=== PATIENT | male | born 1950 | race Caucasian/White ===

== ENCOUNTER 2018-09-12 00:48 | Outpatient (CLI) | payer MEDICARE, BC, SELFPAY ==
--- NOTE | 2018-09-12 08:30 | DI.RAD_ITS ---
SYMPTOM/DIAGNOSIS: LEFT HIP MELINDA N M25.552 LEFT HIP: Joint space narrowing, articular sclerosis and mary-articular hypertrophic spurring are demonstrated. Findings consistent with severe left ;hip DJD. Note is also made of similar findings involving the right hip.
== END 2018-09-12 01:08 ==
PROVIDERS: PCP Family Medicine; Visit Provider Emergency Medicine
DX: M25.552 Pain in left hip (principal); M16.10 Unilateral primary osteoarthritis, unspecified hip
CPT/HCPCS: 73502

== ENCOUNTER → 2018-10-11 10:18 | Outpatient (BNVA) | payer MEDICARE, BC, SELFPAY | PROVIDERS: PCP Family Medicine; Referring Provider Family Medicine; Visit Provider Student in an Organized Health Care Education/Training Program | DX: M16.11 Unilateral primary osteoarthritis, right hip (principal); M16.12 Unilateral primary osteoarthritis, left hip; M25.551 Pain in right hip; M25.552 Pain in left hip | CPT/HCPCS: 99203 ==

== ENCOUNTER 2018-11-23 11:47 | Outpatient (CLI) | payer MEDICARE, BC, SELFPAY ==
--- NOTE | 2018-11-23 12:19 | DI.RAD_ITS ---
SYMPTOM/DIAGNOSIS: PHU SURGICAL PLANNING RIGHT HIP: A single frontal view was performed. There is marked narrowing of the superior joint space of the right hip. There is subchondral sclerosis and mary-articular spurring seen in the right hip. The bones appear intact and normally mineralized on this single AP image. IMPRESSION: Moderately severe degenerative changes of the right hip. LEFT HIP: A single AP view was performed. Comparison is made with 09/12/18. There is marked narrowing of the superior joint space of the left hip. There are prominent osteophytes seen at the acetabulum and the femoral head. Subchondral sclerosis is present. There is normal alignment of the left hip on this single AP view. The soft tissues are grossly unremarkable. IMPRESSION: Marked osteoarthritis of the left hip.
== END 2018-11-23 12:07 ==
PROVIDERS: PCP Family Medicine; Visit Provider Physician Assistant
DX: M16.0 Bilateral primary osteoarthritis of hip (principal); M25.752 Osteophyte, left hip
CPT/HCPCS: 73501

== ENCOUNTER 2018-11-23 13:06 | Outpatient (CLI) | payer MEDICARE, BC, SELFPAY ==
--- NOTE | 2018-11-23 11:46 | W.PREOPHP ---
Date of service: 11/23/18 Assessment and Plan (1) Bilateral primary osteoarthritis of hip: Current visit: No Status: Chronic Bilateral total hip replacements, left then right. Details of surgery were discussed with patient as well as risks and pertinent anatomy. All questions were answered. History of Present Illness Chief Complaint: B/L hip pain Narrative: Bryan is a 68-year-old male who comes in today for a preop history and physical for bilateral total hip replacements. He has been complaining of bilateral hip pain for many years, and does admit that over the last year his left has gotten slightly worse than the right. He says that both hips limit his activity, and it is in fact almost impossible for him to put on shoes and socks at this time because of his lack of mobility and hip pain. He feels the pain mostly in his groin but also in the posterior aspect of his hip as well as the lateral aspect. Again the left slightly worse than the right. He has been using anti-inflammatories, but this does not give him a satisfactory reduction in his pain or increase in his function. X-rays taken previously show severe arthritis of both hips including a loss of joint space on both hips, as well as osteophytes throughout. There also are signs of subchondral cysts. After long discussion with Dr. Rojas, Dr. Rojas does offer a bilateral total hip replacements done on the same day sequentially. He was instructed that an evaluation will be done after the first have to ensure that it is safe to proceed with a second hip, and he agrees with this plan and is anxious to proceed. Pertinent Surgical Information Patient denies history of hypertension, CVA, [place], angina, asthma, COPD, renal or liver disorders, hepatitis, bleeding disorders, diabetes, immune or thyroid disorders. No complications from anesthesia. Review of Systems Constitutional Denies fever(s) ENT Denies dizziness and Denies sore throat Cardiovascular Denies chest pain, Denies palpitations and Denies dyspnea Respiratory Denies cough and Denies dyspnea Gastrointestinal Denies abdominal pain, Denies melena, Denies hematochezia, Denies diarrhea, Denies nausea and Denies vomiting Genitourinary Denies hematuria and Denies dysuria Neurologic Denies dizziness Endocrine Denies palpitations [facility] Social History Smoking/Tobacco Use Status: Former Tobacco Use Drug use: Never Meds Home Medications Medication Instructions Recorded Confirmed Type pkrcctftomyk-blxa-weipr acid 1 ea PO DAILY 12/05/12 11/23/18 History [Centrum Complete Multivit Tab] ranitidine HCl 150 mg PO PRN 08/12/16 11/23/18 History Dry Eye Relief 1 drp OPHTHALMIC (EYE) PRN PRN 09/02/17 11/23/18 History Uc2 1 tab PO DAILY 11/23/18 11/23/18 History loratadine 10 mg PO DAILY 11/23/18 11/23/18 History Allergies Allergy/AdvReac Type Severity Reaction Status Date / Time ergocalciferol (vitamin D2) Allergy Mild Skin Rash Verified 11/23/18 13:26 Penicillins Allergy Unknown Childhood Verified 11/23/18 13:26 allergy Exam HENOH Head: normocephalic and atraumatic General nose exam: no nasal discharge Eyes Conjunctivae: conjunctivae normal Sclera: sclerae normal Resp Effort & Inspection: normal respiratory effort Auscultation: clear to auscultation bilaterally and no wheezes Cardio Rate: regular rate Rhythm: regular rhythm Heart Sounds: S1 normal, S2 normal and no murmurs GI Palpation: soft, no hepatosplenomegaly and nontender Auscultation: normal bowel sounds Results Labs : 11/23/18 14:10 11/23/18 14:10
[2018-11-23 14:21] LABS: HCT 47.9 % (40.0-50.0); HGB 16.3 g/dL (13.5-17.5); Mean Corpuscular Volume 85.1 fL (80-95); Mean Platelet Volume 9.8 fL (8.0-11.0); Platelet Count 209 x1000/uL (130-400); RBC 5.63 m/cumm (4.50-6.00); RBC Distribution Width 12.8 % (11.8-14.1); White Blood Cell Count 6.41 k/cumm (4.4-10.8)
[2018-11-23 15:33] LABS: Anion Gap 12.7 mmol/L (3-11); BUN 17 mg/dL (7-18); CO2 25.3 mmol/L (21.0-32.0); CREATININE 0.85 mg/dL (0.70-1.30); Calcium 8.7 mg/dL (8.5-10.1); Chloride 105 mmol/L (98-107); Glucose 89 mg/dL (70-100); Potassium 4.2 mmol/L (3.5-5.1); Sodium 143 mmol/L (136-145)
== END 2018-11-23 13:26 ==
PROVIDERS: PCP Family Medicine; Visit Provider Student in an Organized Health Care Education/Training Program
DX: M16.0 Bilateral primary osteoarthritis of hip (principal); M25.551 Pain in right hip; M25.552 Pain in left hip; Z01.812 Encounter for preprocedural laboratory examination; Z01.818 Encounter for other preprocedural examination
CPT/HCPCS: 36415; 80048; 85027; 86850; 86900; 86901; NC; 73501; 93005; 93010

== ENCOUNTER 2018-12-06 05:59 | Inpatient (IN) | payer MEDICARE, BC, SELFPAY ==
[2018-12-06] VITALS (17 sets, daily range): BP systolic 84–137; BP diastolic 48–83; PULSE 52–76; RESP 15–22; TEMP 35–36.8; O2SAT 94–100
--- NOTE | 2018-12-06 07:04 | DI.RAD_ITS ---
SYMPTOMS/DIAGNOSIS: OSTEOARTHRITIS LT AND RT HIP C-ARM FLUOROSCOPY OF THE RIGHT HIP: Fluoroscopy Time: 50 sec 5.41 mGY Fluoroscopy was provided in the OR for Dr. Rojas. Hardcopy image shows placement of a right hip prosthesis. The components appear well aligned. C-ARM FLUOROSCOPY OF THE LEFT HIP: Fluoroscopy was provided in the OR for Dr. Rojas. Hardcopy image shows placement of a left hip prosthesis. The components appear well aligned.
[2018-12-06] MEDS: oxyCODONE-CR 10 MG TABCR PO (07:07)
[2018-12-06] MEDS: Acetaminophen 500 MG TAB 1000 MG PO ×2 (07:07→21:04)
[2018-12-06] MEDS: Celecoxib 200 MG CAP 400 MG PO (07:07)
[2018-12-06] MEDS: Lactated Ringers 1,000 ML 80 ML IV ×4 (07:08→14:06)
[2018-12-06] MEDS: ceFAZolin 2 GM/50 ML BAG IVPB (07:34)
[2018-12-06] MEDS: Ketorolac 30 MG/ML VIAL (11:25)
[2018-12-06] MEDS: Normal Saline 20 ML VIAL (11:25)
[2018-12-06] MEDS: Bupivacaine 0.25% Pres-Free 30 ML VIAL (11:25)
--- NOTE | 2018-12-06 12:27 | W.PM.OP ---
Date of service: 12/06/18 Time of Service: 12:27 Operative Note DATE OF PROCEDURE: 12/06/18 PRE-OP DIAGNOSIS: Bilateral Hip Osteoarthritis POST-OP DIAGNOSIS: same PROCEDURE: Bilateral Anterior Total Hip Arthroplasty SURGEON: Lane Rojas NURSE PRACTITIONER PER DIEM: John Velasco ANESTHESIA: spinal ESTIMATED BLOOD LOSS: 1,200 PATHOLOGY: none sent COMPLICATIONS: None Patient was transported to: PACU Patient's condition: stable Implants: LEFT: 1. Depuy [place] Acetabular Component, 56mm 2. Depuy Acetabular Liner, [id number], +4 lateralized 3. Depuy Corail Coxa Vara Femoral Stem, Size 14 4. Depuy Altrx Ceramic Femoral Head, Size 36+5mm RIGHT: 1. Depuy [place] Acetabular Component, 58mm 2. Depuy Acetabular Liner, [id number], +4 lateralized 3. Depuy Corail Coxa Vara Femoral Stem, Size 14 4. Depuy Altrx Ceramic Femoral Head, Size 36+5mm Indications: I have seen Bryan in clinic for symptoms of bilateral hip arthritis, confirmed with radiographic findings. Bryan has exhausted nonoperative methods and was having significant limitations in daily function and desired better function and less pain. I discussed the technical details of a hip replacement. I explained the risks of the procedure to include, but not limited to, bleeding, infection, pain, stiffness, fracture, damage to nerves and vessels, damage to muscles and tendons, loosening, instability, leg length inequality, need for repeat procedure, blood clot and cardiopulmonary demise. Despite these risks, Bryan elected to proceed. Findings: There was significant signs of arthritis throughout the hip. Large lateral neck osteophytes and lateral acetabular osteophytes were encountered and removed. There was also a large floor osteophyte. Procedure Description: Bryan was greeted in the preoperative holding area where the correct side was identified and marked. The consent was reviewed with the patient and signed. The history and physical was updated. All questions were answered. Bryan was taken back to the operating room. A spinal anesthestic was then administered. The patient was placed into the supine position on the operating room table. The patient was then positioned onto the ARCH table. Both feet were wrapped with Webrill cotton wrap along with Coban. The feet were placed in specialized boots for the ARCH table, well seated within the boot and secured. SCDs were applied. The patient was then slid down onto a peroneal post. LEFT HIP The LEFT hip was started first. The right leg was secured in a leg tinajero attached to the table. The operative side was placed into the ARCH table attachment and bed height and positioning was secured. A preoperative AP pelvis was obtained to serve as a reference for determining leg lengths. Prophylactic antibiotics in the form of Cefazolin were administered. 1g of Tranxemic Acid was given intravenously within 30 minutes of incision. The left leg was then prepped with Chloraprep and draped in a standard fashion with a large shower-curtain type drape with Iodine impregnated skin protection. A timeout to confirm correct identity, side and site, procedure, allergies, anesthesia, and medical concerns was performed. An obliquely oriented incision was made starting lateral to the ASIS and running distal over the Tensor Fascia Xochitl (TFL) muscle belly toward the fibular head, approximately 10cm. The skin and soft tissue was dissected sharply, through Miriam?s fascia, and to the fascia of the TFL. With the fascia and superior border of the IT band identified, the fascia was incised with a new knife just above any perforators from the IT band. The TFL muscle belly was bluntly dissected away from the fascia and moved laterally. The fat between TFL and rectus was identified to ensure the dissection was not within the TFL. Blunt dissection created space between abductors and the capsule and retractor was placed over the lateral femoral neck. The fibers of the rectus femoris tendon were identified and these were freed from the anterior capsule. A second cobra retractor was placed around the medial femoral neck. The TFL was further retracted laterally to show the deep fascia. Careful dissection through this layer identified three main crossing vessels of the lateral femoral circumflex. These were cauterized in multiple locations and then cut without any noticeable bleeding. The TFL was further released bluntly from the deep fascia to expose anterior hip capsule and fat The Momo orthopaedic retractor was then placed beneath the TFL and against sartorius and medial soft tissues to protect and retract the soft tissues. A T-capsulotomy was then performed starting at the superior lateral acetabulum and moving distally to the intertrochanteric ridge. These capsular flaps were tagged with a No. 1 Ethibond and elevated from within. The capsular flaps were released to the shoulder of the lateral neck and to the lesser trochanter to give excellent visualization of the proximal femur. A neck osteotomy was performed using an oscillating saw based on preoperative templates. This cut started in the shoulder and of the lateral neck and exited medially. The saw was at all times directed medially to avoid injury to the greater trochanter. 6cm of traction was applied to the leg and the osteotomy opened. The femoral head was removed with a corkscrew, making sure to protect the TFL on its exit. This was measured on the back table to determing the starting reamer size. Portions of the rectus obscuring visualization were minimally elevated off the superior acetabulum. An anterior retractor was placed over the anterior wall between capsule and labrum. A posterior retractor was placed similarly. This provided excellent visualization. The contents of the cotyloid fossa were removed with electrocautery and the labrum was removed with a knife. There was a notable floor osteophyte. Acetabular reaming began with a 53mm reamer. This first reaming was directed anterior to posterior and medial to get down to the true floor. This was inspected and reamed until the true floor was reached. I then reamed sequentially up to a 55mm reamer where good fit was obtained. The larger reamers were oriented based on anatomical reference of the anterior and lateral jennings to ensure proper abduction and anteversion. Positioning and size was confirmed with the fluoroscopy. A 56mm Depuy [place] acetabular component was selected. The acetabulum was reamed around the periphery with the selected acetabular size to prevent a rim fit. The deep tissues were irrigated. The acetabular component was then impacted in a position of about 40-45 degrees of abduction and 15-20 degrees of anteversion, using the patient?s anatomy as the ultimate landmark. Fluoroscopy was used to confirm this. There was excellent senior technical specialist of the acetabular component and the inserting handle was removed. There was a large inferior osteophyte which may have impinged against the stem, so a curved osteotome was used to remove this in whole. The acetabular liner, Depuy [id number] +4 lateralized polyethylene liner, was inserted and lined up with the tines of the acetabular component. There was no soft tissue interposition. The liner was then impacted into position and confirmed to be well-seated. A portion of one half of the mary-articular cocktail was then injected around the acetabulum into the capsule and periosteum. Traction was released from the femur. The leg was rotated to 120 degrees. Any remaining medial capsule was released until the lesser trochanter was easily palpable. A two-pronged retractor was placed medially and held by the bedside Gripper device. The lateral capsule was further released into the shoulder to allow access to the greater trochanter. A Robertson retractor was placed over the greater trochanter which allowed the trochanter to flip in front of the capsule for excellent exposure. The leg was brought down into maximal extension and 20 degrees of adduction while ensuring there was no impingement on the acetabulum. Any remnant capsule within the trochanter was released. Piriformis and obturator externis were identified and protected. There was excellent access to the proximal femur. The lateral neck remnant was removed with a rongeur. A blunt canal probe was used to identify the canal and trajectory for later broaching. A box osteotome initiated the broach course. A small curved rasp and a curved curette were used to work laterally. Broaching then began with a size 8 Corail broach. This was inserted manually around the trochanter and into the canal before mallet blows. The broach was seated to a few millimeters below the cut level based on the neck cut and the preoperative template. Given the narrowing of the end nerve diameter of the proximal femoral shaft seen on preoperative x-rays I knew that this would limit appropriate broaching and seeding of stems. Therefore, I used a flexible reamer system to ream up to a size 14.5 mm diameter to allow insertion of the templated 14 broach. Sequential broaching was continued with the DealPerk mechanical broaching system until a tight fit was obtained with good rotational control of the femur. A trial Coxa Vara neck was inserted along with a +5 trial head. The leg was brought out of extension and adduction and then reduced with traction and internal rotation. The leg was stable anteriorly in a position of 30 degrees of extension and 90 degrees of external rotation. Fluoroscopy was used to ensure there was no fracture and the stem was seated well. Leg lengths were checked with an AP pelvis and pelvic reference points. Once content with the desired offset and leg lengths, the leg was brought back into extension, external rotation and adduction. The periosteum and surrounding tissue was injected with remaining 1/2 portion of the mary-articular cocktail. The proximal femur was irrigated as well as the deep tissues. The Depuy Corail Coxa Vara stem, size 14, was then manually inserted into the proximal femur making sure to control rotation. It was then malleted into position with light blows, giving breaks to allow bone expansion and decrease risk of fracture. The implant did sit 1-2mm proud, despite using a straight handled inserting arm. The selected Depuy Altrx Ceramic Head, size 36+5mm, was then placed onto the clean and dry trunnion and secured with impaction onto the tapered fit. The leg was brought back out of extension and adduction and reduced with traction and internal rotation. Stability was confirmed with no shuck at 90 degrees of external rotation and 30 degrees of extension. No impingement through range of motion arc. Final x-ray images were obtained with fluoroscopy to confirm adequate positioning and no intraoperative fracture. The deep tissues were thoroughly irrigated with a pulse lavage. The capsule was then reapproximated with the previously placed Ethibond sutures. The TFL fascia was finally closed with a No. 2 Stratafix, barbed suture. Deep tissues were then reapproximated with 0 Vicryl and a running 2-0 Vicryl. The skin was closed with a running 4-0 Monocryl in a subcuticular fashion. This was reinforced with skin glue. A Mepilex silver dressing was applied. All instruments were preserved in the back table and kept in a sterile condition. Disposables including Bovie cautery, pulse lavage, and suction were discarded. The drapes were fully removed.. RIGHT HIP The legs were removed from the traction boots and Arch table. The boots were switched and the left leg was secured in a leg tinajero attached to the table. The operative side was placed into the ARCH table attachment and bed height and positioning was secured. A preoperative AP pelvis was obtained to serve as a reference for determining leg lengths. 1g of Tranxemic Acid was given intravenously within 30 minutes of incision of this side. The right leg was then prepped with Chloraprep and draped in a standard fashion with a large shower-curtain type drape with Iodine impregnated skin protection. A second timeout was performed to ensure safety in proceeding to the right side. An obliquely oriented incision was made starting lateral to the ASIS and running distal over the Tensor Fascia Xochitl (TFL) muscle belly toward the fibular head, approximately 10cm. The skin and soft tissue was dissected sharply, through Miriam?s fascia, and to the fascia of the TFL. With the fascia and superior border of the IT band identified, the fascia was incised with a new knife just above any perforators from the IT band. The TFL muscle belly was bluntly dissected away from the fascia and moved laterally. The fat between TFL and rectus was identified to ensure the dissection was not within the TFL. Blunt dissection created space between abductors and the capsule and retractor was placed over the lateral femoral neck. The fibers of the rectus femoris tendon were identified and these were freed from the anterior capsule. A second cobra retractor was placed around the medial femoral neck. The TFL was further retracted laterally to show the deep fascia. Careful dissection through this layer identified three main crossing vessels of the lateral femoral circumflex. These were cauterized in multiple locations and then cut without any noticeable bleeding. The TFL was further released bluntly from the deep fascia to expose anterior hip capsule and fat The Momo orthopaedic retractor was then placed beneath the TFL and against sartorius and medial soft tissues to protect and retract the soft tissues. A T-capsulotomy was then performed starting at the superior lateral acetabulum and moving distally to the intertrochanteric ridge. These capsular flaps were tagged with a No. 1 Ethibond and elevated from within. The capsular flaps were released to the shoulder of the lateral neck and to the lesser trochanter to give excellent visualization of the proximal femur. A neck osteotomy was performed using an oscillating saw based on preoperative templates. This cut started in the shoulder and of the lateral neck and exited medially. The saw was at all times directed medially to avoid injury to the greater trochanter. 6cm of traction was applied to the leg and the osteotomy opened. The femoral head was removed with a corkscrew, making sure to protect the TFL on its exit. This was measured on the back table to determing the starting reamer size. Portions of the rectus obscuring visualization were minimally elevated off the superior acetabulum. An anterior retractor was placed over the anterior wall between capsule and labrum. A posterior retractor was placed similarly. This provided excellent visualization. The contents of the cotyloid fossa were removed with electrocautery and the labrum was removed with a knife. There was a notable floor osteophyte. Acetabular reaming began with a 53mm reamer. This first reaming was directed anterior to posterior and medial to get down to the true floor. This was inspected and reamed until the true floor was reached. I then reamed sequentially up to a 57mm reamer where good fit was obtained. The larger reamers were oriented based on anatomical reference of the anterior and lateral jennings to ensure proper abduction and anteversion. Positioning and size was confirmed with the fluoroscopy. A 56mm Depuy [place] acetabular component was selected. The acetabulum was reamed around the periphery with the selected acetabular size to prevent a rim fit. The deep tissues were irrigated. The acetabular component was then impacted in a position of about 40-45 degrees of abduction and 15-20 degrees of anteversion, using the patient?s anatomy as the ultimate landmark. Fluoroscopy was used to confirm this. There was excellent senior technical specialist of the acetabular component and the inserting handle was removed. The acetabular liner, Depuy [id number] +4 lateralized polyethylene liner, was inserted and lined up with the tines of the acetabular component. There was no soft tissue interposition. The liner was then impacted into position and confirmed to be well-seated. A portion of one half of the mary-articular cocktail was then injected around the acetabulum into the capsule and periosteum. This cocktail consisted of 50cc of 0.25% Bupivicaine and 20cc of Exparel, expanded to a total of 120cc. Traction was released from the femur. The leg was rotated to 120 degrees. Any remaining medial capsule was released until the lesser trochanter was easily palpable. A two-pronged retractor was placed medially and held by the bedside Gripper device. The lateral capsule was further released into the shoulder to allow access to the greater trochanter. A Robertson retractor was placed over the greater trochanter which allowed the trochanter to flip in front of the capsule for excellent exposure. The leg was brought down into maximal extension and 20 degrees of adduction while ensuring there was no impingement on the acetabulum. Any remnant capsule within the trochanter was released. Piriformis and obturator externis were identified and protected. There was excellent access to the proximal femur. The lateral neck remnant was removed with a rongeur. A blunt canal probe was used to identify the canal and trajectory for later broaching. A box osteotome initiated the broach course. A small curved rasp and a curved curette were used to work laterally. Broaching then began with a size 8 Corail broach. This was inserted manually around the trochanter and into the canal before mallet blows. The broach was seated to a few millimeters below the cut level based on the neck cut and the preoperative template. Given the narrowing of the end nerve diameter of the proximal femoral shaft seen on preoperative x-rays I knew that this would limit appropriate broaching and seeding of stems. Therefore, I used a flexible reamer system to ream up to a size 14.5 mm diameter to allow insertion of the templated 14 broach. Sequential broaching was continued with the [employer]Perk mechanical broaching system until a tight fit was obtained with good rotational control of the femur. A trial Coxa Vara neck was inserted along with a +5 trial head. The leg was brought out of extension and adduction and then reduced with traction and internal rotation. The leg was stable anteriorly in a position of 30 degrees of extension and 90 degrees of external rotation. Fluoroscopy was used to ensure there was no fracture and the stem was seated well. Leg lengths were checked with an AP pelvis and pelvic reference points. Once content with the desired offset and leg lengths, the leg was brought back into extension, external rotation and adduction. The periosteum and surrounding tissue was injected with remaining portion of the mary-articular cocktail. The proximal femur was irrigated as well as the deep tissues. The Depuy Corail Coxa Vara stem, size 14, was then manually inserted into the proximal femur making sure to control rotation. It was then malleted into position with light blows, giving breaks to allow bone expansion and decrease risk of fracture. The implant did sit 1-2mm proud, despite using a straigh handled inserting arm. The selected Depuy Altrx Ceramic Head, size 36+5mm, was then placed onto the clean and dry trunnion and secured with impaction onto the tapered fit. The leg was brought back out of extension and adduction and reduced with traction and internal rotation. Stability was confirmed with no shuck at 90 degrees of external rotation and 30 degrees of extension. No impingement through range of motion arc. Final x-ray images were obtained with fluoroscopy to confirm adequate positioning and no intraoperative fracture. The deep tissues were thoroughly irrigated with a pulse lavage. The capsule was then reapproximated with the previously placed Ethibond sutures. The TFL fascia was finally closed with a No. 2 Stratafix, barbed suture. Deep tissues were then reapproximated with 0 Vicryl and a running 2-0 Vicryl. The skin was closed with a running 4-0 Monocryl in a subcuticular fashion. This was reinforced with skin glue. A Mepilex silver dressing was applied. At the end of the case, all counts were correct. Bryan was transferred to the hospital bed without difficulty and suffering [no apparent complication]. Bryan has a good prognosis. Physical therapy will start today and without restrictions, weight-bearing as tolerated. Rivaroxaban 10 mg daily will be used for DVT prophylaxis.
--- NOTE | 2018-12-06 12:31 | DI.RAD_ITS ---
SYMPTOMS/DIAGNOSIS: S/P BILATERAL TOTAL HIP ARTHROPLASTY PELVIS: The exam was performed portably. The patient is status post placement of bilateral hip prostheses. The prostheses appear well aligned.
--- NOTE | 2018-12-06 15:29 | NUR.NOTE ---
Nursing Note: Pt brought up in med-surg bed to room 206. see worklist for VS, Pt temp 35.5 tympanic, warm blankets applied. HR reg, LS anterior clear. issues with boland, minimal output, see worklist. Pt has palpable pedal pulses, intact sensation and movement. denies pain. LR running. Will con't to monitor.
[2018-12-06] MEDS: HYDROmorphone 2 MG/ML VIAL 0.5 MG IVP (16:27)
[2018-12-06] MEDS: Ondansetron 4 MG/2 ML VIAL IVP (16:28)
[2018-12-06] MEDS: Normal Saline Flush 10 ML SYR IV (16:28)
--- NOTE | 2018-12-06 16:30 | PTTR_ITS ---
Date of service: 12/07/18 Time of Service: 09:18 PT Notes Inpatient Physical Therapy Treatment Note [facility] Date: 12/07/18 PRECAUTIONS: Fall. Standard. WBAT. SUBJECTIVE: Bryan was awake and reported he was feeling well. He reported three bouts of vomiting through the previous night, but said he was hungry this morning. He ate breakfast and said he was ?ready to get moving?. OBJECTIVE: PAIN: 04/13 BED MOBILITY/TRANSFERS Rolling L/R: S Supine-sit: S Sit-stand: SBA Stand-sit: SBA GAIT: Bryan ambulated with a FWW with CGA and wheelchair follow for 200? with a reciprocal gait pattern bearing weight on both extremities as tolerated. Deviation: Bryan exhibited decreased step length, normal natalia, and decreased knee flexion during swing phase. THEREX: Bryan performed [address] before attempting the stairs STAIRS: Bryan used bilateral rails and successfully ascended and descended three 4-inch steps and two 6-inch steps ASSESSMENT: Bryan is a 68 year old male s/p bilateral PHU POD 1. He experienced orthostatic hypotension yesterday but his vitals seem more stable today. His urine output is still continuing to be monitored and he is exhibiting hematuria. Functionally, Bryan is moving quite well. He is a motivated individual who has a to support and assist him at home. PLAN: Continue with PT twice daily until medically stable to be discharged. He is recommended to be discharged to his home under the care of his , and with a recommendation to receive home health services twice per week for two weeks. After home health is ceased, he should continue PT services in an outpatient clinic. TREATMENT CODE/TIME: 78565 x 40 minutes, 17536 x 10 minutes beginning at 9:18 AM. [facility] With the supervision of: Rupinder Wilson PT, DPT, CLT [facility]
--- NOTE | 2018-12-06 17:00 | IN_ITS ---
Date of service: 12/06/18 Time of Service: 15:34 PT Notes Inpatient Physical Therapy Evaluation Date: 12/06/2018 Referring Doctor: Lane Rojas MD PT Orders: PT CONSULT: Status post bilateral anterior PHU Precautions: Fall. Standard. WBAT on BLE. Patient Profile/Admitting Diagnosis: 68-year-old male with bilateral primary osteoarthritis of hips S/P bilateral anterior total hip arthroplasty on postoperative day 0. PMHX: GERD Hemorrhoids Hyperlipidemia BPH Social History/Home Situation: Patient lives with Gisselle in a private home with three steps to enter and a flight of steps to the second floor, railing on the r going up, where their bedroom is. They both state though that they will be ableto come up with a makeshift bed for when he goes home on the main floor. Equipment Owned/DME: FWW, shower chair, SC Subjective: Patient is agreeable to a PT consult. Patient states that he has not had any pain pills since coming up from the PACU today but is hopeful about being able to do as much as he can. Bryan reports lightheadedness upon sitting up from supine and partially subsided in the sitting position at EOB. However, symptom significantly increased after about 8 minutes of sitting at edge of bed with blood pressure plummeting to 89/61 mmHg from 100/79 mmHg. Nurse notified of said changes. Patient dednied headache and chest pain throughout session. Objective: General Observation: Patient seen resting in bed with HOB elevated about 30 degrees. Gisselle present throughout PT evaluation. Anti-thromboembolic pump present in R UE. Fajardo catheter in place. Cold pack to bilateral hips. Mepilex Ag over both incisions. Mental Status: Alert and oriented x4 as to person, place, time, and purpose Pain: 1/10 at rest, 3/10 with movement. VItal SIgns: ROM: Right Upper Extremity: Shoulder Flexion WFL. Shoulder abduction WFL. Elbow flexion WFL. Wrist flexion WFL. Functional opening and closing of hand WFL. Left Upper Extremity: Shoulder Flexion WFL. Shoulder abduction WFL. Elbow flexion WFL. Wrist flexion WFL. Functional opening and closing of hand WFL. Right Lower Extremity: Hip flexion allows up to about 30 degrees in supine with discomfort reported at end of range . Hip abduction up to 10 degrees. Knee flexion allows up to. Ankle dorsiflexion WFL. Ankle plantarflexion WFL. Left Lower Extremity: Hip flexion allows up to about 30 degrees in supine. Hip abduction up to 10 degrees. Knee flexion WFL. Ankle dorsiflexion WFL. Ankle pl antarflexion WFL. Strength: Right Upper Extremity: Shoulder flexors 5/5. Shoulder abductors 5/5. Elbow flexors 5/5. Elbow extensors 5/5. Retail Sales Advisor strong. Left Upper Extremity: Shoulder flexors 5/5. Shoulder abductors 5/5. Elbow flexors 5/5. Elbow extensors 5/5. Retail Sales Advisor strong. Right Lower Extremity: Hip flexors 3-/5. Hip abductors 3-/5. Knee flexors 3-/5. Knee extensors 4/5. Ankle dorsiflexors 5/5. Ankle plantarflexors 5/5. Left Lower Extremity:Hip flexors 3-/5. Hip abductors 3-/5. Knee flexors 3-5. Knee extensors 4/5. Ankle dorsiflexors 5/5. Ankle plantarflexors 5/5. Bed Mobility/Transfers: Rolling minimal assist Supine to sit minimal assist Sit to supine minimal assist Sit to stand Unable to test due to blood pressure fluctuation and increased c/o of lightheadedness and weakness Stand to sit Unable to test due to blood pressure fluctuation and increased c/o of lightheadedness and weakness Bed to chair Unable to test due to blood pressure fluctuation and increased c/o of lightheadedness and weakness Chair to bed Unable to test due to blood pressure fluctuation and increased c/o of lightheadedness and weakness Gait: Unable to test due to blood pressure fluctuation and increased c/o of lightheadedness and weakness Balance: Static Sitting: Good Dynamic Sitting: Fair Static Standing: Unable to test due to blood pressure fluctuation and increased c/o of lightheadedness and weakness Dynamic Standing: Unable to test due to blood pressure fluctuation and increased c/o of lightheadedness and weakness Special Tests: Mobility Limitations Standardized Measure [facility] AM-PAC 6 clicks Basic Mobility Inpatient Short Form: Raw Score: 12 CMS Score: 69% deficit Informed Consent/Education: Patient instructed in purpose of PT consult and plan of care. Patient and are both agreeable to continuing with mobility assessment tomorrow morning when his blood pressure is much more stable. Assessment: 68-year-old male with bilateral hip osteoarthritis and status post bilateral total hip arthroplasties on postoperative day 0. Patient presents today with postoperative blood pressure fluctuations ranging from 89/69 mmHg to 100/79 mmHg and HR of 47 to 68 bpm associated with increased lightheadedness during initial mobility assessment that only allowed sitting at edge of bed. Patient presents with clinical signs and symptoms consistent with current/admitting diagnoses that have resulted to mobility limitations, gait instability, generalized weakness, and impairment of motor control as demonstrated by the following impairment level findings: 1. Decreased strength to B LE major muscle groups 2. Impaired sitting/standing balance 3. Impaired activity tolerance 4. Limitation of joint range of motion in the hips Impairments are contributing to the following functional limitations: 1. Dependent bed mobility skills 2. Increased dependence with transfers 3. Inability to safely ambulate without assistive device and physical assi stance 4. Increase completion time for mobility ADL performance 5. Increased fall risk 6. Inability to negotiate steps alone safely Patient is assessed as a [id number] high complexity based on the following: History: Cognitively intact 68-year-old male with premorbid independent level with now with bilateral osteoarthritis of hips status post bilateral total hip arthroplasty postoperative day 0 Examination: Demonstrable impairment in strength, balance, and range of motion with underlying impairments and functional limitations as documented above Presentation:Evolving Decision Makin high complexity Goals: Goals X1 week 1. Supine-Sit independent 2. Sit-Supine independent 3. Sit-Stand independent 4. Stand-Sit independent 5. Bed-Chair independent 6. Chair-Bed independent 7. Independent gait on level surface with use of least restrictive device for at least 300 feet without report of pain nor dyspnea 8. Independent stair negotiation while holding onto bilateral rails for at least 10 steps without report of pain nor dyspnea 9. Independent with home exercise program 10. Good static and dynamic standing balance/tolerance Plan of Care/Treatment Plan: 1-2x/day, 7 days/week x 1 week. Plan of care has been reviewed with the ARCHITECT MANAGER providing the service under Physical Therapy direction. Initiate Physical Therapy intervention for strengthening, bed mobility, transfers, gait, stairs, balance training, use of assistive device. DISCHARGE RECOMMENDATIONS: No equipment needs at this time Patient will benefit from home health PT services in order to progress mobility level using least restrictive assistive ambulatory device, assess home safety, identify additional equipment needs, and establish a functional maintenance program that will increase ability of patient to remain at home. TREATMENT CODE/TIME: 81465 x 40 minutes, 9753 0 x 10 minutes, beginning at 15:34 PM. Thank you very much for this referral. Rupinder Wilson PT, DPT, CLT [facility]
--- NOTE | 2018-12-06 17:03 | NUR.NOTE ---
Addendum entered by Leslie Smith 12/06/18 17:14: while sitting at the bedside, he became nauseous and light headed. Denies any chest pain or pressure, but state he is feeling nauseated at the moment. Anti-emetic given to help relieve symptoms. Patient made comfortable in bed. Charge nurse informed. Original Note: Patient got up with PT, while sittt
[2018-12-06] MEDS: Lactated Ringers 1,000 ML 1000 ML IV (17:40)
[2018-12-06 17:46] LABS: HCT 34.1 % (40.0-50.0); HGB 11.6 g/dL (13.5-17.5)
[2018-12-06] MEDS: Lactated Ringers 1,000 ML 100 ML IV (19:18)
[2018-12-06] MEDS: Celecoxib 100 MG CAP PO (21:04)
[2018-12-06] MEDS: Rivaroxaban 10 MG TABLET PO (21:13)
[2018-12-07] MEDS: HYDROmorphone 2 MG/ML VIAL 0.5 MG IVP (03:37)
[2018-12-07] MEDS: Normal Saline Flush 10 ML SYR IV ×2 (03:38→08:00)
[2018-12-07 03:58] VITALS: BP 113/66; PULSE 64; RESP 18; TEMP 37; O2SAT 96
[2018-12-07] MEDS: Lactated Ringers 1,000 ML 100 ML IV (05:05)
[2018-12-07 07:20] VITALS: BP 112/65; PULSE 81; RESP 18; TEMP 36.6; O2SAT 93
[2018-12-07 07:29] LABS: HCT 28.8 % (40.0-50.0); HGB 9.8 g/dL (13.5-17.5); Mean Corpuscular Hemoglobin 29.4 pg (27.0-33.0); Mean Corpuscular Volume 86.5 fL (80-95); Mean Platelet Volume 10.8 fL (8.0-11.0); Platelet Count 180 x1000/uL (130-400); RBC 3.33 m/cumm (4.50-6.00); RBC Distribution Width 12.4 % (11.8-14.1); White Blood Cell Count 10.26 k/cumm (4.4-10.8)
[2018-12-07 07:37] LABS: Anion Gap 6.9 mmol/L (3-11); BUN 16 mg/dL (7-18); CO2 28.1 mmol/L (21.0-32.0); CREATININE 0.86 mg/dL (0.70-1.30); Calcium 7.4 mg/dL (8.5-10.1); Chloride 105 mmol/L (98-107); Glucose 157 mg/dL (70-100); Potassium 4.3 mmol/L (3.5-5.1); Sodium 140 mmol/L (136-145)
[2018-12-07] MEDS: Ondansetron 4 MG/2 ML VIAL IVP (08:00)
[2018-12-07] MEDS: Acetaminophen 500 MG TAB 1000 MG PO ×2 (08:01→13:37)
[2018-12-07] MEDS: Multivitamin w/Minerals TAB 1 TAB PO (08:02)
[2018-12-07] MEDS: Celecoxib 100 MG CAP PO (08:02)
[2018-12-07] MEDS: Loratidine 10 MG TAB PO (08:02)
--- NOTE | 2018-12-07 10:55 | PHARADMIT ---
Admission Pharmacy Clinical Review BILATERAL HIP DJD (surgery 12/06) Code Status Full Code Current Weight Wgt_82.6 kg Renally Cleared and Narrow Therapeutic Index Meds CRCl~72 mL/min Meds-OK QTc Value / Action Taken QTc-402 na BP Control, Fever BP-112/65 Tmax- 36.7C Electrolytes reviewed Na- 140 K+4.3 DVT Prophylaxis Xarelto Opiate Usage / Scheduled Bowel Regimen Ordered Yes Yes Plt/SCr for Heparin / Enoxaparin Plts-180 SCr-0.86 INR for Warfarin na H/H stable, WBC/Bands H&H- 9.8/28.1 WBC-10.26 Antibiotic appropriateness Ancef Cultures and Sensitivities none Surgical ABX d/c within 24 hr Yes DM control / Insulin Dosing BG-157 Heart Failure (Check EF%) (BEAR's, B-Block, Diuretics) none IV to PO Switch No Home Meds Reviewed Yes Home Meds Not Ordered Dry Ete drop Comments Elizabeth Uc-2 tabs
[2018-12-07 11:05] VITALS: BP 97/61; PULSE 109; RESP 18; TEMP 37; O2SAT 97
--- NOTE | 2018-12-07 13:33 | W.PM.DS.N ---
Date of service: 12/07/18 Time of Service: 13:33 DS: Diagnosis Discharge Diagnosis (1) Bilateral primary osteoarthritis of hip: Status: Chronic Discharge Plan Disposition Patient Disposition: HOME Condition: Good Discharge Details Reason For Visit: BILATERAL HIP DJD Admit Date/Time: 12/06/18 05:59 Admit Provider: Lane Rojas Attending Provider: Lane Rojas Primary Care Provider: Dimitris Holley Hospital Course Hospital Course: Patient was admitted to the medical/surgical floor following the procedure. It was tolerated well without any notable medical, surgical, or anesthetic complications. Mobilization began postoperatively. The boland catheter was removed and voiding spontaneously. Vitals were stable. Physical therapy worked with the patient and was cleared for discharge home. No acute medical issues. Home Meds and New Rx's Prescriptions: New acetaminophen 500 mg tablet 1,000 mg PO Q8H PRN (Reason: pain) Qty: 90 RF: 3 rivaroxaban 10 mg tablet 10 mg PO DAILY Qty: 30 RF: 0 celecoxib 100 mg capsule 100 mg PO BID Qty: 60 RF: 0 hydromorphone 2 mg tablet 2 mg PO Q4H PRN (Reason: pain) Qty: 12 RF: 0 Continued ranitidine HCl 150 MG capsule 150 mg PO PRN RF: 0 dry eye relief 1 drp ophthalmic (eye) PRN PRNRF: 0 Centrum Complete 1 EACH tablet 1 ea PO DAILY RF: 0 loratadine 10 mg Capsule 10 mg PO DAILY RF: 0 Uc2 1 tab PO DAILY RF: 0 Discharge Instructions Additional Instructions: Dr. Rojas?s Total Hip Discharge Instructions Activity: The most important activity is to walk. You should try to take short walks a few times a day. You have no restrictions on movement or positioning, but do not try to force what you do. You will find some stiffness and weakness with hip flexion (lifting your knee). Do not try to strengthen this too early, continue to practice walking and stairs and this will come. - Outpatient physical therapy can be helpful to help return you to a normal gait and improve your flexibility and strength. This can start around 2 weeks. For some patients, it?s not necessary. Usually this is determined at the time of discharge or at the first post-operative visit. - You should wear the ASAEL hose on both legs for 2 weeks. Dressing: Keep the surgical dressing in place for at least one week. After the first week it may be removed and replace with light gauze and tape or nothing. It may get wet after 3 days but avoid soaking the dressing. If it gets wet, just lightly pat dry. It is important to always keep some gauze between skin folds, especially when you are sitting. Spend some time with the wound exposed when you are lying flat as the incision does wrinkle onto itself. Medications: - You should take Tylenol and an anti-inflammatory Celebrex as your primary pain control medications - You have been prescribed a stronger pain medication Hydromorphone for breakthrough pain, take as needed as prescribed. - You should continue to take your stomach acid reduction agent Ranitidine to help reduce stomach acid and reflux. - You will be taking Rivaroxaban 10mg daily for DVT prevention unless instructed otherwise. - If you have constipation you should take Colace or Miralax (both [id number]). It takes most people 3-4 days to have a bowel movement. Follow-up: 2 weeks Stand Alone Forms: Nursing Discharge Form Referrals: Lane Rojas MD [ [facility] STAFF PHYSICIAN] - 12/21/18 9:15 am Activity:: Activity as Tolerated Equipment/Supplies:: Walker Diet:: As Tolerated Discharge Orders Discharge Orders: Discharge Order (Routine); Ordered 12/07/18 Ordered By: Lane Rojas Discharge Data Discharge Date/Time-TO BE ENTERED AT DEPARTURE: 12/07/18 15:50 DS: Data Vitals/I&O Vitals and I&O: Vital Signs Temperature 37 C 12/07/18 11:05 Temperature Source Tympanic 12/07/18 11:05 Pulse 109 H 12/07/18 11:05 Pulse Rhythm Regular 12/07/18 07:35 Respiratory Rate 18 12/07/18 11:05 Respiratory Effort Non-Labored 12/07/18 07:35 Respiratory Depth Normal 12/07/18 07:35 Respiratory Pattern Normal 12/07/18 07:35 Blood Pressure 97/61 L 12/07/18 11:05 Pulse Oximetry 97 12/07/18 11:05 Respiratory End-tidal CO2 27 12/06/18 13:10 Oxygen Delivery Method Room Air 12/07/18 11:05 Oxygen Flow Rate 0 12/07/18 11:05 Pain Level 3 12/07/18 11:05 Comment 12/06/18 15:40 Intake & Output 12/06/18 12/07/18 12/07/18 23:59 11:59 23:59 Intake Total 2429.999 / 4599.999 1798.333 / 2388.333 590 / 2388.333 Output Total 850 / 1500 1075 / 1075 Balance 1579.999 / 3099.999 723.333 / 1313.333 590 / 1313.333 Intake: IV 2279.999 / 4449.999 1078.333 / 1078.333 Oral 150 / 150 720 / 1310 590 / 1310 Output: Urine 650 / 700 1075 / 1075 Emesis 200 / 200 Other: Urine Color Dark Red Light Valentine Moore Urine Appearance Hematuria Clear Comment see note under boland intervention a few clots seen. urine in tube is clearing up now. Emesis Description Clear/Water Labs on day of discharge: Labs from last 24 hours 12/07/18 12/07/18 12/06/18 06:08 06:08 17:37 WBC 10.26 RBC 3.33 L Hgb 9.8 L 11.6 L Hct 28.8 L 34.1 L MCV 86.5 MCH 29.4 MCHC 34.0 RDW 12.4 Plt Count 180 MPV 10.8 Sodium 140 Potassium 4.3 Chloride 105 Carbon Dioxide 28.1 Anion Gap 6.9 BUN 16 Creatinine 0.86 Estimated GFR/1.73 m2 >= 60.00 Glucose 157 H Calcium 7.4 L PFSH Social History Smoking/Tobacco Use Status: Former Tobacco Use Drug use: Never
--- NOTE | 2018-12-07 14:21 | CHAPLAIN ---
I visited with Bryan and his . Bryan said he is feeling good after having surgery on both hips. He said his pain is less than it was before the surgery. He expects to be going home later today or tomorrow. His seems very supportive.
--- NOTE | 2018-12-07 16:48 | PDOC.CMPRO ---
Care Management Progress Note ANNA met with Bryan and his , Gisselle. Bryan shared no concerns about discharge and reported he would be using Gisselle's FWW (she acquired after a recent surgery). 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 He reported relocating to [place] from [place] twenty three years ago for work and traveling all over [place]. Bryan reported retiring four years ago and reviewed his many hobbies and projects since group home. I'm busier than I've ever been. He also laughed when sharing that he no longer fixes appliances and replaces them every six years so he doesn't have to. He replaced the floors in his home himself ([employer]) and has screened in his porch to name a few. He and Gisselle share a full life they report feeling content with. After group home Bryan took up Golf which he reports enjoying very much. Bryan and Gisselle reviewed their families and background collectively. Bryan reports he is a but ineligible for service connection. Bryan will return home with Gisselle where he plans to stay in the den during recovery as the bathroom is attached to what was a planned Master Bedroom downstairs but has become a play room for their grandchildren. He reports having less pain post surgically than prior. ANNA reviewed contact information in the event further needs arise.
--- NOTE | 2018-12-08 09:29 | INDS_ITS ---
Date of service: 12/07/18 Time of Service: 09:30 PT Notes Inpatient Physical Therapy Discharge Summary Dates: 12/08/2018 Dates of Service: 12/06/2018 and 12/07/2018 Patient Profile/Admitting Diagnosis: 68-year-old male with bilateral primary osteoarthritis of hips S/P bilateral anterior total hip arthroplasty on postoperative day 0. PMHX: GERD Hemorrhoids Hyperlipidemia BPH Social History/Home Situation: Patient lives with Gisselle in a private home with three steps to enter and a flight of steps to the second floor, railing on the r going up, where their bedroom is. They both state though that they will be ableto come up with a makeshift bed for when he goes home on the main floor. Equipment Owned/DME: FWW, shower chair, SC SUBJECTIVE: Bryan reported 4/10 discomfort on his quadriceps region. He said he is ready to go and that the doctor was waiting for him to urinate. OBJECTIVE: Pain: 4/10 on bilateral hips STRENGTH: L LE: Hip flexion 3-/5, Knee extension 5/5. Ankle dorsiflexion 5/5. Ankle plantar flexion 5/5. R LE: 3-/5, Knee extension 5/5. Ankle dorsiflexion 5/5. Ankle plantar flexion 5/5. Hip abduction 5/5. Hip adduction. BED MOBILITY/TRANSFERS: Supine-sit I Sit-supine I Sit-stand I Stand-sit I Bed-Chair I Chair-bed I THERAEX: 1 x 10 long arc quad 1 x 10 mini squats 1 x [address] 1 x 10 heel raises 1 x 10 supine hip bridges GAIT: Patient was able to ambulate 100? with FWW and SBA with reciprocal gait. Patient exhibited decreased step length and decreased knee flexion during swing. Patient then ambulated backwards 10? with CGA twice without assistive device. Patient was then able to perform lateral stepping 10? with CGA twice with assistive device. Patient then ambulated 60? with only SBA, and another 40? with FWW. BALANCE: Static sitting: Normal Dynamic sitting: Normal Static standing: Normal Dynamic standing: Fair ASSESSMENT: Patient is a 68-year-old male s/p bilateral PHU POD 1. He is very motivated and feels ready to return home. He has the support of his , Gisselle who will assist him with his needs in the home. His prognosis is very good. Patient presents with clinical signs and symptoms consistent with current/admitting diagnoses that have resulted to mobility limitations, gait instability, generalized weakness, and impairment of motor control as demonstrated by the following impairment level findings: 1. Decreased strength to B LE major muscle groups 2. Impaired dynamic standing balance 3. Impaired activity tolerance 4. Limitation of joint range of motion in B LE Impairments are contributing to the following functional limitations: 1. Inability to safely ambulate without assistive device and physical assistance 2. Increase completion time for mobility ADL performance 3. Increased fall risk 4. Inability to negotiate steps alone safely GOALS: Goals X1 week 1. Supine-Sit independent Met 2. Sit-Supine independent Met 3. Sit-Stand independent Met 4. Stand-Sit independent Met 5. Bed-Chair independent Met 6. Chair-Bed independent Met 7. Independent gait on level surface with use of least restrictive device for at least 300 feet without report of pain nor dyspnea Met 8. Independent stair negotiation while holding onto bilateral rails for at least 10 steps without report of pain nor dyspnea Met 9. Independent with home exercise program Met 10. Good static and dynamic standing balance/tolerance Met DISCHARGE PLAN/RECOMMENDATIONS: The Student PT and PT recommend discharging Mr. Henry to his home under the care of his . The patient is recommended to receive home health benefits twice per week for two weeks followed by the initiation of outpatient physical therapy services. Thank you for this referral. Good Hdz, [facility] With supervision of: Rupinder Wilson PT, DPT, CLT [facility]
== END 2018-12-07 15:50 | disposition home or self-care (01) | DRG 462 ==
LOC: PDS 10:10 → MS 12:45
PROVIDERS: Admitting Provider Student in an Organized Health Care Education/Training Program; PCP Family Medicine; Visit Provider Student in an Organized Health Care Education/Training Program
PROC: 0SR90JZ Replacement of Right Hip Joint with Synthetic Substitute, Open Approach (ICD-10-PCS; CPT 27130; principal; 2018-12-06 07:30)
DX: M16.11 Unilateral primary osteoarthritis, right hip (principal); M16.12 Unilateral primary osteoarthritis, left hip; M25.551 Pain in right hip; M25.552 Pain in left hip; Z96.643 Presence of artificial hip joint, bilateral
CPT/HCPCS: 27130; 36415; 80048; 85027; 97110; 97163; 97530; NC; 72170; 73501; 85014; 85018; J0690; J1100; J1885; J2250; J2405; J3010

== ENCOUNTER 2018-12-21 09:25 | Outpatient (CLI) | payer MEDICARE, BC, SELFPAY ==
--- NOTE | 2018-12-21 09:07 | DI.RAD_ITS ---
EXAM: XR HIP RT AP LAT ONLY INDICATION: Bilateral hip arthritis. COMPARISON: XR HIP LT AP LAT ONLY from 12/21/2018 TECHNIQUE: 2D digital imaging was performed. FINDINGS: Two views were obtained and show total hip joint replacement in position. The components appear well seated. No other significant bony abnormality seen.
--- NOTE | 2018-12-21 09:07 | DI.RAD_ITS ---
EXAM: XR HIP LT AP LAT ONLY INDICATION: bilateral hip arthritis. COMPARISON: XR hip LT in OR from 12/06/2018 TECHNIQUE: 2D digital imaging was performed. FINDINGS: Two views were obtained and show total hip joint replacement in position. Components appear well sea lisa. No other significant bony abnormality seen.
== END 2018-12-21 09:45 ==
PROVIDERS: PCP Family Medicine; Referring Provider Family Medicine; Visit Provider Student in an Organized Health Care Education/Training Program
DX: M16.0 Bilateral primary osteoarthritis of hip (principal); Z96.643 Presence of artificial hip joint, bilateral; Z47.1 Aftercare following joint replacement surgery
CPT/HCPCS: 73502

== ENCOUNTER → 2019-01-18 08:23 | Outpatient (BNVA) | payer MEDICARE, BC, SELFPAY | PROVIDERS: PCP Family Medicine; Referring Provider Family Medicine; Visit Provider Student in an Organized Health Care Education/Training Program | DX: M16.0 Bilateral primary osteoarthritis of hip (principal); Z47.1 Aftercare following joint replacement surgery; Z96.643 Presence of artificial hip joint, bilateral ==

== ENCOUNTER → 2019-03-05 07:51 | Outpatient (BNVA) | payer MEDICARE, BC, SELFPAY | PROVIDERS: PCP Family Medicine; Referring Provider Family Medicine; Visit Provider Student in an Organized Health Care Education/Training Program | DX: M16.0 Bilateral primary osteoarthritis of hip (principal); Z47.1 Aftercare following joint replacement surgery; M70.62 Trochanteric bursitis, left hip ==

== ENCOUNTER → 2019-04-16 07:58 | Outpatient (BNVA) | payer MEDICARE, BC, SELFPAY | PROVIDERS: PCP Family Medicine; Referring Provider Family Medicine; Visit Provider Student in an Organized Health Care Education/Training Program | DX: M16.0 Bilateral primary osteoarthritis of hip (principal); M70.62 Trochanteric bursitis, left hip | CPT/HCPCS: 99212 ==

== ENCOUNTER 2019-11-08 02:12 | Outpatient (CLI) | payer MEDICARE, BC, SELFPAY ==
[2019-11-08 10:39] LABS: Calculated LDL 139 mg/dL (<100); Cholesterol 213 mg/dL (<200); HDL Cholesterol 52 mg/dL (40-60); Triglyceride 114 mg/dL (<150)
== END 2019-11-08 02:32 ==
PROVIDERS: PCP Family Medicine; Visit Provider Family Medicine
DX: E78.5 Hyperlipidemia, unspecified (principal)
CPT/HCPCS: 36415; 80061

== ENCOUNTER 2019-12-07 08:08 | Outpatient (CLI) | payer MEDICARE, BC, SELFPAY ==
--- NOTE | 2019-12-07 09:02 | DI.RAD_ITS ---
EXAM: XR HIP PELVIS ADULT BL CLINICAL HISTORY: annual f/u. TECHNIQUE: 2D digital imaging was performed. COMPARISON: CR XR HIP LT AP LAT ONLY from 12/21/2018 CR XR HIP RT AP LAT ONLY from 12/21/2018 FINDINGS: There are stable postsurgical changes of bilateral total hip arthroplasties. No evidence of hardware failure is seen. The bones are intact and normally mineralized. These are unremarkable. IMPRESSION: Stable bilateral THR. DATA REPOSITORY: RADIATION DOSE DELIVERED:
== END 2019-12-07 08:28 ==
PROVIDERS: PCP Family Medicine; Referring Provider Family Medicine; Visit Provider Student in an Organized Health Care Education/Training Program
DX: Z96.643 Presence of artificial hip joint, bilateral; M16.0 Bilateral primary osteoarthritis of hip
CPT/HCPCS: 73521; 99213

== ENCOUNTER 2020-05-28 15:39 | Observation (INO) | payer MEDICARE, BC, SELFPAY ==
[2020-05-28] VITALS (53 sets, daily range): BP systolic 104–158; BP diastolic 53–84; PULSE 81–109; RESP 1–38; TEMP 36.6–37.7; O2SAT 87–98
--- NOTE | 2020-05-28 15:30 | RT.EKG_ITS ---
APPROVED REPORT Exam: Resting ECG Patient Location: E HR:101 bpm ECG Measurements Heart Rate 101 AXIS DC 147 P 44 QRSd 78 QRS 66 QT 319 T 14 QTc 415 Conclusion Sinus tachycardia...rate> 99 I have reviewed and interpreted ECG and agree with software generated interpretation.
--- NOTE | 2020-05-28 15:44 | W.ED.GENAD ---
Discharge Plan Disposition Patient Disposition: [facility] INPATIENT Condition: Stable Discharge Details Clinical Impression: Multifocal pneumonia, Hypoxia Admit Date/Time: 05/28/20 18:50 Admit Provider: Abram Johnson Attending Provider: Abram Johnson Primary Care Provider: Max Zelaya ED Provider: Jinny Lancaster Discharge Data Discharge Date/Time-TO BE ENTERED AT DEPARTURE: 05/28/20 19:55 Medical Decision Making 69-year-old male with a history of BPH, GERD and hyperlipidemia presents for productive cough and shortness of breath the past 2 days and hypoxia with oxygen saturations in the 70s 80s on room air at the respiratory clinic today. Oxygen saturation 87% on room air on arrival. Increased to mid to high 90s on 5 L facemask. He has scattered wheezing throughout. He is speaking in full sentences. He appears nontoxic. Differential diagnosis includes pneumonia, bronchitis, PE, CHF, coronavirus. Will place an IV, bolus IV fluids, screening labs, CT chest and give a dose of Solu-Medrol, DuoNeb, fluids and reassess. Rapid Covid test negative. Labs reviewed. White blood cell count elevated at 16. Troponin negative. CT notes bilateral pulmonary infiltrates. Patient reassessed and he feels better but with any movement becomes short of breath. Breath sounds coarse bilaterally with scattered wheezing. Oxygen saturation 91% on 2 L. Will admit patient for multifocal pneumonia requiring supplemental oxygen with plan for IV antibiotics, duo nebs. Case discussed with hospitalist who accepts patient for admission. Medical Records Medical records reviewed: Yes I reviewed the patient's medical records. Imaging Data Radiologic Study: Radiologist's impression: CT Angiography Chest With Contrast Exam date and time: 05/28/2020 4:05 PM Age: 69 years old Clinical indication: Other: SOB, wheezing, chest tightness TECHNIQUE: Imaging protocol: Computed tomographic angiography of the chest with contrast. 3D rendering (Not supervised by radiologist): MIP and/or 3D reconstructed images were created by the technologist. Contrast material: OMNIPAQUE 350; Contrast volume: 98 ml; Contrast route: INTRAVENOUS (IV); COMPARISON: No relevant prior studies available. FINDINGS: Pulmonary arteries: Normal. No pulmonary emboli. Aorta: Unremarkable. No aortic aneurysm. No aortic dissection. Lungs: Bilateral pulmonary infiltrates suggestive of infection, inflammation or interstitial lung disease. No honeycombing. No bronchiectasis. Peripheral and subpleural distribution could indicate NSIP. Pleural spaces: Small left pleural effusion. Heart: Unremarkable. No cardiomegaly. No pericardial effusion. Mediastinal space: Moderate hiatal hernia with asymmetric wall thickening measuring up to 3.6 cm. Underlying lesion within the hiatal hernia is not excluded. Clinically correlate. Lymph nodes: Unremarkable. No enlarged lymph nodes. Bones/joints: Degenerative changes in the spine. Soft tissues: Unremarkable. IMPRESSION: 1. No pulmonary embolism. 2. Moderate hiatal hernia with asymmetric wall thickening measuring up to 3.6 cm. Underlying lesion within the hiatal hernia is not excluded. Clinically correlate. 3. Bilateral pulmonary infiltrates suggestive of infection, inflammation or interstitial lung disease. No honeycombing. No bronchiectasis. Peripheral and subpleural distribution could indicate NSIP. 4. Small left pleural effusion. Lab Data Lab results reviewed: Yes I reviewed the patient's lab results. ECG Data Attestation: I personally reviewed and interpreted this ECG (s) as follows: Interpretation: Rate of 101, sinus, T wave inversion in lead III. No acute ST elevation or depression. MI 147. QRS 38. QTc 415. HPI General Mode of arrival: ambulatory. Date/Time Provider Initiated Documentation: 05/28/20 15:43. Limitations to Documentation: no limitations. Information obtained by: patient. HPI Narrative: Patient is a 69-year-old male with a history of GERD, hyperlipidemia who presents to the ED with a complaint of productive cough and shortness of breath for the past few days, and hypoxia today at the respiratory clinic at [facility]. Patient states his cough is productive of clear and yellow sputum. He was seen at the respiratory clinic today and they noted hypoxia with oxygen saturation in the 70s to 80s. Patient states he was diagnosed with a sinus infection 1 week ago and finished antibiotic and states the symptoms have completely resolved. He denies any known fever, chest pain, abdominal pain, nausea, vomiting, diarrhea. He denies any recent travel or known sick contacts. Related Data Home Medications Medication Instructions Recorded Confirmed Dry Eye Relief 1 drp OPHTHALMIC (EYE) PRN PRN 09/02/17 05/28/20 loratadine 10 mg PO DAILY 11/23/18 05/28/20 antiarthritic combination no.2 900 900 mg PO DAILY 04/16/19 05/28/20 mg tablet xhgeuwyu-kib-onrxn acid 300 1 tab PO DAILY 11/01/19 05/28/20 mcg-lycopene 600 mcg-lutein 300 mcg tablet cefpodoxime 200 mg PO BID #14 tab 05/30/20 famotidine 40 mg PO HS #30 tab 05/30/20 guaifenesin [Mucinex] 600 mg PO BID #30 tab 05/30/20 levofloxacin 750 mg PO DAILY #7 tab 05/30/20 prednisone 40 mg PO DAILY #8 tab 05/30/20 Previous Rx's Medication Instructions Recorded cefpodoxime 200 mg PO BID #14 tab 05/30/20 famotidine 40 mg PO HS #30 tab 05/30/20 guaifenesin [Mucinex] 600 mg PO BID #30 tab 05/30/20 levofloxacin 750 mg PO DAILY #7 tab 05/30/20 prednisone 40 mg PO DAILY #8 tab 05/30/20 Allergies Allergy/AdvReac Type Severity Reaction Status Date / Time ergocalciferol (vitamin D2) Allergy Mild Skin Rash Verified 05/28/20 15:51 Penicillins Allergy Unknown Childhood Verified 05/28/20 15:51 allergy Review of Systems All systems reviewed & are unremarkable except as noted in HPI and below Constitutional Constitutional: Reports as per HPI, Denies chills and Denies fever(s) Eyes Eyes: Denies blurry vision ENT Ears, Nose, Mouth, and Throat: Denies dizziness, Denies sore throat and Denies throat swelling Cardiovascular Cardiovascular: Denies chest pain and Reports dyspnea Respiratory Respiratory: Reports cough and Reports dyspnea Gastrointestinal Gastrointestinal: Denies abdominal pain, Denies diarrhea and Denies vomiting Genitourinary Genitourinary: Denies hematuria and Denies dysuria Musculoskeletal Musculoskeletal: Denies back pain and Denies numbness Integumentary/Breasts Skin/Breast: Denies lesions and Denies rash Neurologic Neurologic: Denies dizziness, Denies localized weakness and Denies numbness Allergic/Immunologic Allergic/Immunologic: Denies throat swelling [facility] Medical History (Updated 05/30/20 @ 11:17 by Stephanie Zamarripa NP) BPH NOS w/o ur obs/LUTS Encounter for screening for malignant neoplasm of rectum Hemorrhoids (03/03/03) Hiatal hernia Hyperlipidemia (06/02/12) Knee pain bilateral pat. fem. 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 Lt bilat pat.fem arthritis Nasal congestion Screening for malignant neoplasm of the rectum + stools blood Seasonal allergies Sinusitis Skin tag of anus (08/12/15) Surgical History (Updated 05/29/20 @ 09:15 by Stephanie Zamarripa NP) Colonoscopy - MAC H/O left knee surgery excision prepatellar mass x2 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) Status post tendon repair (12/11/12) Left index finger Family History Mother , 94 Acquired hypothyroidism Father , 75's Essential hypertension Heart disease Brother Acquired hypothyroidism Brother , 28 Substance abuse Social History Smoking/Tobacco Use Status: Former Tobacco Use Second Hand Exposure: Yes Smoking risk assessment performed?: Yes Alcohol Intake: current Alcohol Intake frequency: a few times a month Alcohol type: beer, wine and hard liquor Drug use: Never Caregiver/Support person: No Household members: spouse Housing: house Communication Needs: None Do you need help understanding health information?: Never Pets and animals: No Sexually active: Yes Do you think of yourself as: straight/heterosexual Current gender identity: male What is your relationship status?: How often do you talk on the phone with friends or family?: three or more times per week How often do you get together with friends or relatives?: never How often do you attend anglican or sikh services?: decline to answer Do you belong to any clubs or organized social groups?: yes Panel score (0-1 are the most socially isolated patients): 3 Seatbelt use: always Helmet use: No Drive 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 Exam Const General: cooperative and no acute distress Orientation: alert, awake and oriented x3 HENMT Head: normal to inspection Face and sinus: normal facial exam Eyes General: appearance normal, both eyes and all related structures EOM: EOM intact bilaterally Neck Neck: normal visual inspection and No submandibular swelling Lymphatic: no lymphadenopathy noted Chest Chest: normal inspection of the chest and no tenderness Resp Effort & Inspection: normal respiratory effort and able to speak in complete sentences Auscultation: rhonchi upper bilaterally; Negative for lower bilaterally and wheezes scattered wheezes Cardio Rate: tachycardic Rhythm: regular rhythm GI Inspection: normal to inspection Palpation: soft, not firm, not rigid and nontender Auscultation: normal bowel sounds Skin General skin exam: no rashes or lesions noted Neuro General: patient alert, patient awake and patient oriented x3 Cognition: normal cognition Speech: speech normal Motor: muscle tone normal throughout Sensory Exam: no sensory deficits noted Extrem General: normal to inspection, full ROM, capillary refill normal, no calf tenderness bilaterally and no edema Psych Appearance: grossly normal Mental Status: mental status grossly normal Speech and Movement: speech and movement normal Affect: normal affect
--- NOTE | 2020-05-28 16:00 | DI.CT_ITS ---
EXAM: CT CHEST PE CTA CLINICAL HISTORY: sob, wheezing, chest tightness. TECHNIQUE: Imaging Protocol: CT angiography of the chest was performed using pulmonary embolus raffi col. Multi planar reconstructions were performed. CONTRAST MATERIAL: Intravenous: Omnipaque 350 Contrast volume: 98 cc COMPARISON: No exams were available for comparison FINDINGS: CHEST: PULMONARY ARTERIES: There are no central intraluminal filling defects to suggest acute central pulmon hortensia emboli.Opacification of the segmental pulmonary arteries is less than optimal. LUNGS: There are extensive bilateral interstitial and partially confluent infiltrates throughout both lung yi. No obvious honeycombing. Tiny amount of left pleural fluid.. No pneumothorax. MEDIASTINUM: Small lymph nodes are noted in both daryl as well as in the subcarinal region. No adenop athy in the anterior mediastinal fat. No supraclavicular adenopathy. There is no axillary adenopath y. There is a hiatal hernia and there is an eccentric left-sided mural mass at this level suspicious for possible malignancy in the lower esophagus and requiring endoscopy. No obvious adjacent adenopathy nor adenopathy in the epigastric region.Visualized thyroid unremarkable. CARDIAC: Heart size is normal. There is no pericardial effusion.Caliber of the thoracic aorta is wit hin normal limits. There is no evidence of shift of the interventricular septum. PARTIALLY VISUALIZED UPPERMOST ABDOMEN: No adrenal masses. Hepatic steatosis without obvious discret e focal hepatic lesions evident. OSSEOUS: There is a benign-appearing lesion in the T11 vertebral body which has the appearance of an intraosseous hemangioma. No truly lytic lesions identified. IMPRESSION: 1. No evidence of acute pulmonary emboli. No evidence of pulmonary infarction. 2. Extensive interstitial and partially confluent infiltrates throughout both lung yi, not associ ated with large pleural effusions. There is a tiny amount of left pleural fluid. 3. Small lymph nodes are noted in the hilar regions and subcarinal region. 4. There is a hiatal hernia and there is a suggestion of a concerning eccentric left-sided mass at t he GE junction which is suspicious for possible neoplasm. Recommend consultation for endoscopy. RADIATION DOSE DELIVERED: LINK-TO-SR Total DLP DATA REPOSITORY: All CT scans at this facility are submitted to the National Radiology Data Registry (NRDR) Dose Index Registry (DIR) with the [employer] (A[employer]). RADIATION OPTIMIZATION: All CT scans at this facility use at least one of these dose optimization te chniques: automated exposure control; mA and/or kV adjustment per patient size (includes targeted exa ms where dose is matched to clinical indication); or iterative reconstruction.
[2020-05-28] MEDS: Albuterol/Ipratropium 3 ML UPD VIAL UPD (16:05)
[2020-05-28 16:20] LABS: Abs Immature Grans 0.09 10^3/uL (0.0-0.06); Absolute Basophil Count 0.08 10^3/uL (0.0-0.2); Absolute Eosinophil Count 0.03 10^3/uL (0.0-0.7); Absolute Lymphocyte Count 1.16 10^3/uL (1.2-3.4); Absolute Monocyte Count 1.02 10^3/uL (0.1-0.8); Absolute Neutrophil Count 13.73 10^3/uL (1.2-6.7); Basophils % 0.5; Eosinophils % 0.2; HCT 46.2 % (40.0-50.0); HGB 15.3 g/dL (13.5-17.5); Immature Grans % 0.6; Lymphocytes % 7.2; MCH 28.7 pg (27.0-33.0); MCHC 33.1 % (32.0-36.0); MCV 86.7 fL (80-95); MPV 9.1 fL (8.0-11.0); Monocytes % 6.3; Neutrophils % 85.2; Nucleated RBC 0 %; Platelet Count 633 10^3/uL (130-400); RBC 5.33 10^6/uL (4.36-5.78); RDW 11.9 % (11.8-14.1); WBC 16.12 10^3/uL (4.4-10.8)
[2020-05-28] MEDS: Normal Saline 500 ML IV (16:22)
[2020-05-28] MEDS: methylPREDNISolone SUCC 125 MG VIAL IVP (16:23)
[2020-05-28 16:34] LABS: INR 1.1 (0.9-1.1); PTT Activated 25.5 sec (21.0-27.5); Prothrombin Time 11.2 sec (9.3-11.0)
[2020-05-28 16:39] LABS: ALT 30 U/L (16-63); AST 27 U/L (15-37); Albumin 2.5 g/dL (3.4-5.0); Alkaline Phosphatase 102 U/L (46-116); Anion Gap 10.8 mmol/L (3-11); BUN 10 mg/dL (7-18); Bilirubin, Total 0.4 mg/dL (0.2-1.0); CO2 26.2 mmol/L (21.0-32.0); CREATININE 0.8 mg/dL (0.70-1.30); Calcium 8.7 mg/dL (8.5-10.1); Chloride 99 mmol/L (98-107); Glucose 136 mg/dL (74-106); Potassium 3.4 mmol/L (3.5-5.1); Sodium 136 mmol/L (136-145); Total Protein 7.6 g/dL (6.4-8.2)
[2020-05-28 16:41] LABS: Troponin I < 0.05 ng/mL (<0.06)
[2020-05-28 17:01] LABS: Influenza A PCR Negative (Negative); Influenza B PCR Negative (Negative); RSV PCR Negative (Negative)
[2020-05-28 17:08] LABS: COVID-19 PCR Negative (Negative)
[2020-05-28] MEDS: Omnipaque 350 MG/ML 100 ML BTL IJ (18:12)
[2020-05-28] MEDS: Normal Saline - Diluent 50 ML VIAL IV (18:13)
[2020-05-28] MEDS: Normal Saline Flush 10 ML SYR IVP ×3 (18:14→21:52)
--- NOTE | 2020-05-28 18:50 | DI.VRAD_ITS ---
PROCEDURE INFORMATION: Exam: CT Angiography Chest With Contrast Exam date and time: 05/28/2020 4:05 PM Age: 69 years old Clinical indication: Other: SOB, wheezing, chest tightness TECHNIQUE: Imaging protocol: Computed tomographic angiography of the chest with contrast. 3D rendering (Not supervised by radiologist): MIP and/or 3D reconstructed images were created by the technologist. Contrast material: OMNIPAQUE 350; Contrast volume: 98 ml; Contrast route: INTRAVENOUS (IV); COMPARISON: No relevant prior studies available. FINDINGS: Pulmonary arteries: Normal. No pulmonary emboli. Aorta: Unremarkable. No aortic aneurysm. No aortic dissection. Lungs: Bilateral pulmonary infiltrates suggestive of infection, inflammation or interstitial lung disease. No honeycombing. No bronchiectasis. Peripheral and subpleural distribution could indicate NSIP. Pleural spaces: Small left pleural effusion. Heart: Unremarkable. No cardiomegaly. No pericardial effusion. Mediastinal space: Moderate hiatal hernia with asymmetric wall thickening measuring up to 3.6 cm. Underlying lesion within the hiatal hernia is not excluded. Clinically correlate. Lymph nodes: Unremarkable. No enlarged lymph nodes. Bones/joints: Degenerative changes in the spine. Soft tissues: Unremarkable. IMPRESSION: 1. No pulmonary embolism. 2. Moderate hiatal hernia with asymmetric wall thickening measuring up to 3.6 cm. Underlying lesion within the hiatal hernia is not excluded. Clinically correlate. 3. Bilateral pulmonary infiltrates suggestive of infection, inflammation or interstitial lung disease. No honeycombing. No bronchiectasis. Peripheral and subpleural distribution could indicate NSIP. 4. Small left pleural effusion. Dictated and Authenticated by: Jones Bhandari MD. Ordering:ERLIN Stearns MD
[2020-05-28] MEDS: levoFLOXacin 750 MG/150 ML BAG 100 MG IVPB (19:09)
[2020-05-28 19:29] LABS: BE 2 mmol/L (-2-3); HCO3 25 mmol/L (22-26); pCO2 35 mmHg (35-45); pH 7.47 (7.35-7.45); pO2 81 mmHg (80-105); sO2 96 % (95-98); tCO2 22 mmol/L (23-27)
[2020-05-28 19:30] LABS: FIO2L 4 L; Site Left Radial
[2020-05-28] MEDS: Albuterol 2.5 MG/3 ML INH SOLN VIAL UPD (20:53)
--- NOTE | 2020-05-28 21:04 | HPE_ITS ---
Date of service: 05/28/20 Time of Service: 21:05 Assessment and Plan Assessment and plan (1) Multifocal pneumonia: Status: Acute Assessment and plan: CT scan pattern suggests an atypical pneumonia. Ila valentine's been started on Levaquin which should cover community-acquired pneumonias including Legionella and mycoplasma as well as Streptococcus pneumonia, H. influenzae, Moraxella and MSSA. Although the patient has a penicillin allergy as a child he is indicated that he is taken cephalosporins and penicillins since that time without reaction. I will add Rocephin 2 g IV daily to his regimen with the Levaquin. Patient will continue to receive aerosolized bronchodilators along with pulmonary toiletry with incentive spirometry and Acapella device. We will continue on IV corticosteroids. Nasopharyngeal swab was obtained in the emergency department and found to be negative for SARS-CoV-2 as well as influenza a and B as well as RSV. (2) Hiatal hernia: Status: Chronic Assessment and plan: CT of the chest suggested some asymmetrical thickening of the distal esophagus which should be followed up as an outpatient with an EGD once he is recovered from his pneumonia. History of Present Illness History of Present Illness Chief Complaint: shortness of breath Narrative: 69-year-old male with a past medical history of GERD, BPH, hyperlipidemia was being treated for sinusitis over the last 2 weeks. Said his symptoms started with postnasal drainage, sinus pressure, bilateral earache. He just completed a 1 week course of antibiotics including doxycycline 100 mg twice a day. He says over the last for 5 days he has had increasing shortness of cody ath cough this been minimally productive of clear white mucus and low-grade fever of 99 but no hemoptysis. He said he return to the clinic today because of increased dyspnea. He has a home pulse oximeter which he says has been running in the mid 80s. In the office his pulse oximetry was 78% on room air and his respiratory rate was 32 and his temperature was 37.7. He was borderline tachycardic with a heart rate of 96 with stable blood pressure 142/80. He was referred to the emergency department where he underwent a CT scan of his chest that showed multifocal interstitial and partially confluent infiltrates with a small left pleural effusion. No pulmonary embolus was seen and no evidence of pulmonary infarction. He has a hiatal hernia with some asymmetric wall thickening at the GE junction for which a follow-up EGD is recommended. Laboratory work-up showed a leukocytosis 16,000 but no anemia. ABG demonstrated mild alkalosis with a pH 7.47 with a PCO2 35 and a PO2 of 81 with an oxygen saturation 96% on 4 L/min per nasal cannula. Coag studies within normal limits. CMP showed a low potassium of 3.4 normal kidney function and normal LFTs and mildly elevated glucose of 136. Patient was given a bolus of IV fluids prior to his CT scan of his chest. He was given DuoNeb updrafts and subsequent albuterol updraft and given a dose of Solu-Medrol 125 mg IV and was started on Levaquin 750 mg IV. He is now admitted on observation status for treatment of community-acquired pneumonia. He will be treated with scheduled dose of DuoNeb treatments along with IV Solu-Medrol and IV Levaquin. Further outpatient work-up can be pursued once his pneumonia is cleared regarding the abnormal findings of his GE junction of his hiatal hernia. Review of Systems All systems reviewed & are unremarkable except as noted in HPI and below ENT Ears, Nose, Mouth, and Throat: Denies otalgia, Denies nasal congestion, Denies nasal discharge, Denies post nasal drip and Denies sinus pressure Cardiovascular Cardiovascular: Denies chest pain, Reports dyspnea and Reports dyspnea on exertion Respiratory Respiratory: Reports cough, Denies hemoptysis, Reports dyspnea and Reports dyspnea on exertion Gastrointestinal Gastrointestinal: Denies melena and Reports loose stools Genitourinary Genitourinary: Reports system reviewed and no additional complaints, except as documented Musculoskeletal Musculoskeletal: Reports system reviewed and no additional complaints, except as documented Integumentary/Breasts Skin/Breast: Reports system reviewed and no additional complaints, except as documented Neurologic Neurologic: Reports system reviewed and no additional complaints, except as documented Hematologic/Lymphatic Hematologic/Lymphatic: Reports system reviewed and no additional complaints, except as documented Allergic/Immunologic Allergic/Immunologic: Reports system reviewed and no additional complaints, except as documented [facility] Medical History Encounter for screening for malignant neoplasm of rectum Mycotic arthritis of lower leg knee pain Lt bilat pat.fem arthritis Nasal congestion Screening for malignant neoplasm of the rectum + stools blood Seasonal allergies Skin tag of anus (08/12/15) Surgical History Colonoscopy - MAC H/O left knee surgery excision prepatellar mass x2 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) Status post tendon repair (12/11/12) Left index finger Family History Mother , 94 Acquired hypothyroidism Father , 75's Essential hypertension Heart disease Brother Acquired hypothyroidism Brother , 28 Substance abuse Social History Smoking/Tobacco Use Status: Former Tobacco Use Second Hand Exposure: Yes Smoking risk assessment performed?: Yes Alcohol Intake: current Alcohol Intake frequency: a few times a month Alcohol type: beer, wine and hard liquor Drug use: Never Caregiver/Support person: No Household members: spouse Housing: house Communication Needs: None Do you need help understanding health information?: Never Pets and animals: No Sexually active: Yes Do you think of yourself as: straight/heterosexual Current gender identity: male What is your relationship status?: How often do you talk on the phone with friends or family?: three or more times per week How often do you get together with friends or relatives?: never How often do you attend zoroastrian or cheondoism services?: decline to answer Do you belong to any clubs or organized social groups?: yes Panel score (0-1 are the most socially isolated patients): 3 Seatbelt use: always Helmet use: No Drive intox or ride w/intox sales route driver: No Meds Home Medications and Allergies Home Medications Medication Instructions Recorded Confirmed Type Dry Eye Relief 1 drp OPHTHALMIC (EYE) PRN PRN 09/02/17 05/28/20 History loratadine 10 mg PO DAILY 11/23/18 05/28/20 History antiarthritic combination no.2 900 900 mg PO DAILY 04/16/19 05/28/20 History mg tablet gagnqviy-yje-amgfs acid 300 1 tab PO DAILY 11/01/19 05/28/20 History mcg-lycopene 600 mcg-lutein 300 mcg tablet Allergies Allergy/AdvReac Type Severity Reaction Status Date / Time ergocalciferol (vitamin D2) Allergy Mild Skin Rash Verified 05/28/20 15:51 Penicillins Allergy Unknown Childhood Verified 05/28/20 15:51 allergy Exam Narrative Exam Narrative: Elderly male who is alert and oriented person place time circumstance able to speak in complete sentences without dyspnea. Not using accessory respiratory muscles. HEENT is unremarkable. TMs are intact no erythema or bulging and no bullous changes. Nares is moist without epistaxis. Oropharynx noninjected no exudate. Neck supple nontender no JVD normal carotid pulses no bruits Lungs with diffuse scattered fine rales without rhonchi. Some scattered end expiratory wheezes. Heart is regular to slightly tachycardic without appreciable murmur rub or gallop. Abdomen soft nontender no organomegaly no palpable masses no bruits Extremities without peripheral cyanosis or edema. No calf tenderness. Neuro exam grossly intact nonfocal. Results Imaging CT scan - chest: report reviewed and image reviewed EKG: image reviewed Imaging Studies: Hggwc-la-sidq ultrasound of his lungs shows bilateral scattered B-lines pattern with some areas of sparing demonstrating A line pattern. B-lines pattern is seen in both bases and right upper lobe anteriorly with some sparing of the mid lung field on the right as well as midlung field on the left. Limited qgsuj-bi-vvhq ultrasound the heart showed normal LV and RV function. Labs Result diagrams: 05/28/20 16:10 05/28/20 16:10 Labs: Laboratory Results - last 24 hr 05/28/20 05/28/20 05/28/20 16:10 16:10 16:10 WBC RBC Hgb Hct MCV MCH MCHC RDW Plt Count MPV Immature Gran % Neutrophils % Lymphocytes % Monocytes % Eosinophils % Basophils % Nucleated RBC % Absolute Neutrophils Absolute Lymphocytes Absolute Monocytes Absolute Eosinophils Absolute Basophils PT 11.2 H INR 1.1 APTT 25.5 ABG Sample Site ABG pH ABG pCO2 ABG pO2 ABG HCO3 ABG Total CO2 ABG O2 Saturation ABG Base Excess Oxygen Liter Flow Sodium 136 Potassium 3.4 L Chloride 99 Carbon Dioxide 26.2 Anion Gap 10.8 BUN 10 Creatinine 0.8 Estimated GFR/1.73 m2 >= 60.00 Glucose 136 H Calcium 8.7 Magnesium 2.0 Total Bilirubin 0.4 AST 27 ALT 30 Alkaline Phosphatase 102 Troponin I < 0.05 Total Protein 7.6 Albumin 2.5 L COVID-19 Source Nasopharyx SARS-CoV-2 (PCR) Negative Influenza Type A (PCR) Negative Influenza Type B (PCR) Negative RSV (PCR) Negative 05/28/20 05/28/20 16:10 19:23 WBC 16.12 H RBC 5.33 Hgb 15.3 Hct 46.2 MCV 86.7 MCH 28.7 MCHC 33.1 RDW 11.9 Plt Count 633 H MPV 9.1 Immature Gran % 0.6 Neutrophils % 85.2 Lymphocytes % 7.2 Monocytes % 6.3 Eosinophils % 0.2 Basophils % 0.5 Nucleated RBC % 0 Absolute Neutrophils 13.73 H Absolute Lymphocytes 1.16 L Absolute Monocytes 1.02 H Absolute Eosinophils 0.03 Absolute Basophils 0.08 PT INR APTT ABG Sample Site Left radial ABG pH 7.47 H ABG pCO2 35 ABG pO2 81 ABG HCO3 25 ABG Total CO2 22 L ABG O2 Saturation 96 ABG Base Excess 2 Oxygen Liter Flow 4 Sodium Potassium Chloride Carbon Dioxide Anion Gap BUN Creatinine Estimated GFR/1.73 m2 Glucose Calcium Magnesium Total Bilirubin AST ALT Alkaline Phosphatase Troponin I Total Protein Albumin COVID-19 Source SARS-CoV-2 (PCR) Influenza Type A (PCR) Influenza Type B (PCR) RSV (PCR) Last Vital Signs Temp 37.2 C 05/28/20 20:32 Pulse 96 H 05/28/20 20:47 Resp 18 05/28/20 20:32 BP 132/78 05/28/20 20:32 Pulse Ox 93 05/28/20 20:32 COVID-19 Screening Have you, or household traveled for leisure in last 14 days?: No Had IN PERSON contact w/suspected or confirmed C-19 person: No
[2020-05-28] MEDS: Famotidine 20 MG TAB 40 MG PO (21:48)
[2020-05-28] MEDS: methylPREDNISolone SUCC 125 MG VIAL 60 MG IVP (21:49)
[2020-05-28] MEDS: Enoxaparin 40 MG/0.4 ML SYR SC (21:51)
[2020-05-29] VITALS (12 sets, daily range): BP systolic 114–129; BP diastolic 60–65; PULSE 61–81; RESP 1–19; TEMP 36.5–37; O2SAT 90–99
[2020-05-29] MEDS: Normal Saline Flush 10 ML SYR IVP ×4 (00:56→17:43)
[2020-05-29] MEDS: Normal Saline 500 ML 30 ML IV (00:56)
[2020-05-29] MEDS: Albuterol/Ipratropium 3 ML UPD VIAL UPD ×4 (01:08→20:00)
[2020-05-29] MEDS: methylPREDNISolone SUCC 125 MG VIAL 60 MG IVP (06:10)
[2020-05-29 07:01] LABS: Abs Immature Grans 0.06 10^3/uL (0.0-0.06); Absolute Eosinophil Count 0.01 10^3/uL (0.0-0.7); Absolute Lymphocyte Count 0.74 10^3/uL (1.2-3.4); Absolute Monocyte Count 0.27 10^3/uL (0.1-0.8); Basophils % 0.2; Eosinophils % 0.1; HGB 13.8 g/dL (13.5-17.5); Immature Grans % 0.5; Lymphocytes % 5.7; MCH 28.6 pg (27.0-33.0); MCHC 32.9 % (32.0-36.0); MCV 87.1 fL (80-95); Monocytes % 2.1; Neutrophils % 91.4; Nucleated RBC 0 %; Platelet Count 572 10^3/uL (130-400); RBC 4.82 10^6/uL (4.36-5.78); RDW 11.9 % (11.8-14.1); RDW-SD 38.1 fL; WBC 12.99 10^3/uL (4.4-10.8)
[2020-05-29 07:07] LABS: Absolute Basophil Count 0.03 10^3/uL (0.0-0.2); Absolute Neutrophil Count 11.87 10^3/uL (1.2-6.7)
[2020-05-29 07:17] LABS: Anion Gap 10.5 mmol/L (3-11); BUN 16 mg/dL (7-18); CO2 24.5 mmol/L (21.0-32.0); CREATININE 0.9 mg/dL (0.70-1.30); Calcium 8.7 mg/dL (8.5-10.1); Chloride 104 mmol/L (98-107); Glucose 225 mg/dL (74-106); Potassium 3.7 mmol/L (3.5-5.1); Sodium 139 mmol/L (136-145)
--- NOTE | 2020-05-29 07:55 | PDOC.CMIN ---
- If Service Date Differs Date of service: 05/29/20 Time of Service: 07:55 Care Management Initial Assess REASON FOR HOSPITALIZATION:: CAP PAST MEDICAL HISTORY/PAST SURGICAL HISTORY:: Encounter for screening for malignant neoplasm of rectum. Mycotic arthritis of lower leg. knee pain Lt bilat pat.fem arthritis. Nasal congestion. Screening for malignant neoplasm of the rectum. + stools blood. Seasonal allergies. Skin tag of anus (08/12/15). Colonoscopy - MAC. H/O left knee surgery. excision prepatellar mass x2. 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 Status post tendon repair (12/11/12). 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 He reported relocating to [place] from [place] twenty five years ago for work and traveling all over [place]. Bryan reported retiring six years ago and reviewed his many hobbies and projects since longterm. I'm busier than I've ever been. He also laughed when sharing that he no longer fixes appliances and replaces them every six years so he doesn't have to. He replaced the floors in his home himself ([employer] [employer]) and has screened in his porch to name a few. He and his Gisselle share a full life they report feeling content with. After longterm Bryan took up Golf which he reports enjoying very much. Bryan and Gisselle reviewed their families and background collectively. Bryan reports he is a but ineligible for service connection. CURRENT FUNCTIONAL STATUS:: Bryan was sitting up in the chair dozing when CM entered his room, CM did not disturb Bryan at this time and will continue to follow. ADVANCE DIRECTIVES:: None on file at [facility]. Has patient been provided with info about the portal/API?: Yes Did the patient sign up for the portal?: Yes (Previously) CODE STATUS:: Full Code INSURANCE COVERAGE / FINANCIAL ISSUES:: Medicare. BC/BS CURRENT HOME/COMMUNITY SERVICES/EQUIPMENT:: [facility] PRIMARY CARE PHYSICIAN:: [facility] POTENTIAL DISCHARGE NEEDS:: Follow up appointment with PCP. PATIENT/FAMILY EDUCATION NEEDS:: Review discharge instructions, discuss Ask Me Three. ANTICIPATED BARRIERS TO DISCHARGE:: None identified at this time. TRANSPORTATION:: Via private vehicle with his , Gisselle. PLAN:: Anticipate Bryan will return home when ready per MD. He will follow up with his PCP and plan of care as prescribed. No additional service supports anticipated at this time. He will transport via private vehicle with his .
[2020-05-29] MEDS: Loratidine 10 MG TAB PO (08:12)
[2020-05-29] MEDS: Multivitamin TAB 1 TAB PO (08:12)
[2020-05-29 10:44] LABS: Procalcitonin 0.2 ng/mL
--- NOTE | 2020-05-29 12:04 | W.PM.PROGNOT ---
Date of Service Date of service: 05/29/20 Time of Service: 12:04 Assessment and Plan Assessment and plan (1) Multifocal pneumonia: Start date: 05/29/20 Start time: 12:10 Status: Acute Assessment and plan: Atypical pneumonia as suggested by CT. Blood cultures pending Leukocytosis improved from 16 to 12.99 Levaquin and Ceftriaxone day 2. Coughing up white sputum Lung sound improving no wheezing, rales Procal 0.2 Requiring oxygen If he can be weaned off oxygen he can be discharged home tomorrow on levaquin PO. (2) Hiatal hernia: Start date: 05/29/20 Start time: 12:15 Status: Inactive Assessment and plan: CT of the chest suggested some asymmetrical thickening of the distal esophagus which should be followed up as an outpatient with an EGD once he is recovered from his pneumonia. Will refer to Surgery on discharge above case discussed with Dr. Frye Subjective Subjective Patient reports: feels better Interval history since last seen: Bryan is sitting up in the chair, very pleasant elderly male. On oxygen requiring 2 units at this time. He is coughing white sputum up. Encouraged IS with him which induced more coughing with him, I explained this is normal, I encouraged him to continue to do IS during commericals he is open to this. I also discussed CT findings with him and explained that he will need an EGD and there is a possibility this could be cancer. He was appreciative of the information and will follow up as an outpatient. Exam Narrative Exam Narrative: Elderly male who is alert and oriented person place time circumstance able to speak in complete sentences without dyspnea. Not using accessory respiratory muscles. HEENT is unremarkable. TMs are intact no erythema or bulging and no bullous changes. Nares is moist without epistaxis. Oropharynx noninjected no exudate. Neck supple nontender no JVD normal carotid pulses no bruits Lungs clear bilaterally to all lung yi. Heart is regular without appreciable murmur rub or gallop. Abdomen soft nontender no organomegaly no palpable masses no bruits Extremities without peripheral cyanosis or edema. No calf tenderness. Neuro exam grossly intact nonfocal. Objective Last Vital Signs Temp 36.9 C 05/29/20 11:27 Pulse 74 05/29/20 11:27 Resp 18 05/29/20 11:27 BP 124/62 05/29/20 11:27 Pulse Ox 92 05/29/20 11:27 Laboratory Results - last 24 hr 05/28/20 05/28/20 05/28/20 16:10 16:10 16:10 WBC RBC Hgb Hct MCV MCH MCHC RDW Plt Count MPV Immature Gran % Neutrophils % Lymphocytes % Monocytes % Eosinophils % Basophils % Nucleated RBC % Absolute Neutrophils Absolute Lymphocytes Absolute Monocytes Absolute Eosinophils Absolute Basophils PT 11.2 H INR 1.1 APTT 25.5 ABG Sample Site ABG pH ABG pCO2 ABG pO2 ABG HCO3 ABG Total CO2 ABG O2 Saturation ABG Base Excess Oxygen Liter Flow Sodium 136 Potassium 3.4 L Chloride 99 Carbon Dioxide 26.2 Anion Gap 10.8 BUN 10 Creatinine 0.8 Estimated GFR/1.73 m2 >= 60.00 Glucose 136 H Calcium 8.7 Magnesium 2.0 Total Bilirubin 0.4 AST 27 ALT 30 Alkaline Phosphatase 102 Troponin I < 0.05 Total Protein 7.6 Albumin 2.5 L Procalcitonin COVID-19 Source Nasopharyx SARS-CoV-2 (PCR) Negative Influenza Type A (PCR) Negative Influenza Type B (PCR) Negative RSV (PCR) Negative 05/28/20 05/28/20 05/29/20 16:10 19:23 06:50 WBC 16.12 H RBC 5.33 Hgb 15.3 Hct 46.2 MCV 86.7 MCH 28.7 MCHC 33.1 RDW 11.9 Plt Count 633 H MPV 9.1 Immature Gran % 0.6 Neutrophils % 85.2 Lymphocytes % 7.2 Monocytes % 6.3 Eosinophils % 0.2 Basophils % 0.5 Nucleated RBC % 0 Absolute Neutrophils 13.73 H Absolute Lymphocytes 1.16 L Absolute Monocytes 1.02 H Absolute Eosinophils 0.03 Absolute Basophils 0.08 PT INR APTT ABG Sample Site Left radial ABG pH 7.47 H ABG pCO2 35 ABG pO2 81 ABG HCO3 25 ABG Total CO2 22 L ABG O2 Saturation 96 ABG Base Excess 2 Oxygen Liter Flow 4 Sodium 139 Potassium 3.7 Chloride 104 Carbon Dioxide 24.5 Anion Gap 10.5 BUN 16 D Creatinine 0.9 Estimated GFR/1.73 m2 >= 60.00 Glucose 225 H D Calcium 8.7 Magnesium Total Bilirubin AST ALT Alkaline Phosphatase Troponin I Total Protein Albumin Procalcitonin COVID-19 Source SARS-CoV-2 (PCR) Influenza Type A (PCR) Influenza Type B (PCR) RSV (PCR) 05/29/20 05/29/20 06:50 06:50 WBC 12.99 H RBC 4.82 Hgb 13.8 Hct 42.0 MCV 87.1 MCH 28.6 MCHC 32.9 RDW 11.9 Plt Count 572 H MPV 9.0 Immature Gran % 0.5 Neutrophils % 91.4 Lymphocytes % 5.7 Monocytes % 2.1 Eosinophils % 0.1 Basophils % 0.2 Nucleated RBC % 0 Absolute Neutrophils 11.87 H Absolute Lymphocytes 0.74 L Absolute Monocytes 0.27 Absolute Eosinophils 0.01 Absolute Basophils 0.03 PT INR APTT ABG Sample Site ABG pH ABG pCO2 ABG pO2 ABG HCO3 ABG Total CO2 ABG O2 Saturation ABG Base Excess Oxygen Liter Flow Sodium Potassium Chloride Carbon Dioxide Anion Gap BUN Creatinine Estimated GFR/1.73 m2 Glucose Calcium Magnesium Total Bilirubin AST ALT Alkaline Phosphatase Troponin I Total Protein Albumin Procalcitonin 0.2 COVID-19 Source SARS-CoV-2 (PCR) Influenza Type A (PCR) Influenza Type B (PCR) RSV (PCR)
--- NOTE | 2020-05-29 15:10 | CHAPLAIN ---
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 It seems that his family is very supportive. He was at [facility] for an appointment and was sent here to the ED because his oxygen level was low. He explained that he was placed on oxygen for a bit, but no longer needs it. Normally, he said he goes his doctor just once a year for a physical.
[2020-05-29] MEDS: levoFLOXacin 750 MG/150 ML BAG 100 MG IVPB (17:43)
[2020-05-29 18:13] LABS: Legionella Ag Detection Urine Negative (Negative)
[2020-05-29] MEDS: guaiFENesin 600 MG TABCR PO (19:59)
[2020-05-29] MEDS: Famotidine 20 MG TAB 40 MG PO (21:54)
[2020-05-29] MEDS: Enoxaparin 40 MG/0.4 ML SYR SC (21:55)
[2020-05-30] MEDS: cefTRIAXone 1 GM/50 ML BAG IV (01:18)
[2020-05-30] MEDS: Albuterol/Ipratropium 3 ML UPD VIAL UPD ×2 (01:18→06:42)
[2020-05-30] MEDS: Normal Saline Flush 10 ML SYR IVP (01:18)
[2020-05-30 02:25] VITALS: O2SAT 94
[2020-05-30 07:04] LABS: Abs Immature Grans 0.15 10^3/uL (0.0-0.06); Basophils % 0.2; HCT 40.6 % (40.0-50.0); HGB 13.3 g/dL (13.5-17.5); Immature Grans % 0.8; Lymphocytes % 8.1; MCH 28.4 pg (27.0-33.0); MCHC 32.8 % (32.0-36.0); MCV 86.6 fL (80-95); MPV 9.2 fL (8.0-11.0); Monocytes % 5.8; Neutrophils % 85.1; Nucleated RBC 0 %; Platelet Count 600 10^3/uL (130-400); RBC 4.69 10^6/uL (4.36-5.78); RDW-SD 38.3 fL; WBC 19.91 10^3/uL (4.4-10.8)
[2020-05-30 07:08] LABS: Absolute Basophil Count 0.04 10^3/uL (0.0-0.2); Absolute Lymphocyte Count 1.61 10^3/uL (1.2-3.4); Absolute Monocyte Count 1.15 10^3/uL (0.1-0.8); Absolute Neutrophil Count 16.94 10^3/uL (1.2-6.7)
[2020-05-30 07:10] LABS: Anion Gap 10.1 mmol/L (3-11); BUN 21 mg/dL (7-18); CO2 25.9 mmol/L (21.0-32.0); CREATININE 0.9 mg/dL (0.70-1.30); Calcium 8.7 mg/dL (8.5-10.1); Chloride 105 mmol/L (98-107); Glucose 156 mg/dL (74-106); Potassium 3.6 mmol/L (3.5-5.1); Sodium 141 mmol/L (136-145)
[2020-05-30] MEDS: guaiFENesin 600 MG TABCR PO (07:17)
[2020-05-30] MEDS: Loratidine 10 MG TAB PO (07:17)
[2020-05-30] MEDS: Multivitamin TAB 1 TAB PO (07:17)
[2020-05-30 07:30] VITALS: BP 146/70; PULSE 88; RESP 18; TEMP 37.3; O2SAT 90
[2020-05-30 07:39] LABS: Hemoglobin A1C 6.8 % (<5.7)
[2020-05-30 08:00] VITALS: O2SAT 93
[2020-05-30] MEDS: predniSONE 20 MG TAB 40 MG PO (08:40)
[2020-05-30 09:30] VITALS: PULSE 107; PULSE 96; PULSE 97; RESP 20; RESP 24; RESP 32; O2SAT 88; O2SAT 95
--- NOTE | 2020-05-30 10:32 | W.PM.DS.N ---
Date of service: 05/30/20 Time of Service: 10:34 DS: Diagnosis Discharge Diagnosis (1) Multifocal pneumonia: Start date: 05/30/20 Start time: 10:34 Status: Acute Asessment and Plan: Atypical pneumonia as suggested by CT Symptoms improved, he is off oxygen, ambulatory without requiring oxygen. Leukocytosis did increase over night however he was on high dose steroids, will repeat labs as an outpatient in a couple of days. Will send home on levaquin po x 7 days and of cefpodoxime IS continue at home, acappella continue at home mucinex continue at home He should have a repeat CXR in 6 weeks (2) Hiatal hernia: Start date: 05/30/20 Start time: 11:16 Status: Acute Asessment and Plan: CT of the chest suggested some asymmetrical thickening of the distal esophagus left-sided mass at the GE junction which is suspicious for possible neoplasm which should be followed up as an outpatient with an EGD Refer to surgery for next week to set up EGD above case discussed with Dr. Frye Discharge Plan Disposition Patient Disposition: HOME Condition: Stable Discharge Details Reason For Visit: COMMUNITY AQUIRED PNEUMONIA Admit Date/Time: 05/28/20 18:50 Admit Provider: Abram Johnson Attending Provider: Abram Johnson [facility] Hospital Course: 69 y.o male with PMH GERD, BPH, HLD, being treated with sinusitis over the last 2 weeks presents to [facility] after completing 1 week course of antibiotics including doxycycline. 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 He was seen by PCP day of admission and sent to [facility] ED for low oxygen sat. ED labs remarkable for leukocytosis 16 without anemia. He was requiring 4 L oxygen to maintain 96% Potassium was 3.4. He also had an elevated glucose A1c was 6.8 will defer to PCP for further management of DM. CT of chest Extensive interstitial and partially confluent infiltrates throughout both lung yi, not associated with large pleural effusions. There is a tiny amount of left pleural fluid. Small lymph nodes are noted in the hilar regions and subcarinal region. There is a hiatal hernia and there is a suggestion of a concerning eccentric left-sided mass at the GE junction which is suspicious for possible neoplasm. Recommend consultation for endoscopy. Over course of hospitalization his symptoms improved. He is no longer requiring oxygen. He was able to ambulate without oxyentation. His leukocytosis did increase but this likely was due to a large dose of steroids he was initially receiving, dose reduced after 24 hours as oxygen improved and he had no wheezing. He was able to do IS and acappella, he has a cough that is harsh with little production will discharge home on levaquin po and cefpodoixime po x 7 days. He feels good today. Discussion was had about CT findings of possible neoplasm at GE junction. Patient today was very tearful and frightened after processing the news. He states his brother in law a couple years ago of esophagea cancer and his has had a hard time with his . He is afraid how his will handle this finding. Will refer to surgery next week, for EGD. He will need repeat CXR in 6 weeks, follow up with PCP in 1-2 weeks and repeat labs in 1 week. He denies CP, SOB, n/v/d Home Meds and New Rx's Prescriptions: New cefpodoxime 200 mg tablet 200 mg PO BID Qty: 14 RF: 0 famotidine 20 mg Tablet 40 mg PO HS Qty: 30 RF: 0 guaifenesin [Mucinex] 600 mg Tablet Extended Release 12hr 600 mg PO BID Qty: 30 RF: 0 levofloxacin 750 mg tablet 750 mg PO DAILY Qty: 7 RF: 0 prednisone 20 mg Tablet 40 mg PO DAILY Qty: 8 RF: 0 Continued Centrum Silver Men 300-600-300 mcg tablet 1 tab PO DAILY RF: 0 glucosamine-chondroitin 900 mg tablet 900 mg PO DAILY RF: 0 dry eye relief 1 drp ophthalmic (eye) PRN PRNRF: 0 loratadine 10 mg Capsule 10 mg PO DAILY RF: 0 Discharge Instructions Instructions: Basic Carbohydrate Counting (DC), Community Acquired Pneumonia (DC) Additional Instructions: Finish all of your medication Take pepcid because steroid can cause you to have worse reflux Continue to use your duck breather and your incentive spirometer to help improve your pneumonia follow up with surgery on 06/05 at 3 pm Follow up with your PCP in 1-2 weeks. Repeat lab work in 1 week. You did have an elevate A1C I will defer to your PCP for further management you should follow a low carb diet. Stand Alone Forms: Nursing Discharge Form Referrals: Petar Bills NP [NURSE PRACTITIONER] - 06/04/20 11:00 am Vannessa Méndez DO [OSTEOPATHIC DOCTOR] - 06/05/20 3:00 pm Activity:: Activity as Tolerated Equipment/Supplies:: No Equipment Needed Diet:: Carb Counting Discharge Orders Discharge Orders: Discharge Order (Routine); Ordered 05/30/20 Ordered By: Stephanie Zamarripa DS: Summary Time Spent with Patient providing and/or coordinating discharge services: Greater than 30 minutes (approx 40 mins spent discharging patient) Status at Discharge Functional status at discharge: independent ambulation Overall status at discharge: patient is progressing back to baseline Mental Status: mental status grossly normal Speech and Movement: speech and movement normal Mood: congruent mood Affect: normal affect Exam Narrative Exam Narrative: Elderly male who is alert and oriented person place time circumstance able to speak in complete sentences without dyspnea. Not using accessory respiratory muscles. HEENT is unremarkable. TMs are intact no erythema or bulging and no bullous changes. Nares is moist without epistaxis. Oropharynx noninjected no exudate. Neck supple nontender no JVD normal carotid pulses no bruits Lungs clear bilaterally to all lung yi. Heart is regular without appreciable murmur rub or gallop. Abdomen soft nontender no organomegaly no palpable masses no bruits Extremities without peripheral cyanosis or edema. No calf tenderness. Neuro exam grossly intact nonfocal. Psych Mental Status: mental status grossly normal Speech and Movement: speech and movement normal Mood: congruent mood Affect: normal affect DS: Data Vitals/I&O Vitals and I&O: Vital Signs Temperature 37.3 C 05/30/20 07:30 Temperature Source Temporal Artery Scan 05/30/20 07:30 Pulse 88 05/30/20 07:30 Pulse Rhythm Regular 05/30/20 02:25 Pulse 95 H 05/28/20 19:50 Respiratory Rate 18 05/30/20 07:30 Respiratory Effort Non-Labored 05/30/20 02:25 Respiratory Depth Normal 05/30/20 02:25 Respiratory Pattern Normal 05/30/20 02:25 Blood Pressure 146/70 H 05/30/20 07:30 Blood Pressure Mean 68 05/28/20 19:45 Blood Pressure Position Supine 05/28/20 15:43 Pulse Oximetry 93 05/30/20 08:00 Oxygen Delivery Method Room Air 05/30/20 08:00 Oxygen Flow Rate 0 05/30/20 08:00 Pain Level 0 05/30/20 07:30 Comment 05/30/20 07:16 Intake & Output 05/29/20 05/29/20 05/30/20 11:59 23:59 11:59 Intake Total 1382 / 2412 1030 / 2412 50 / 50 Output Total 650 / 1250 600 / 1250 1200 / 1200 Balance 732 / 1162 430 / 1162 -1150 / -1150 Weight 83.3 kg 83.3 kg Intake: IV 52 / 52 50 / 50 Oral 1330 / 2360 1030 / 2360 Output: Urine 650 / 1250 600 / 1250 1200 / 1200 Other: Urine Color Straw Yellow Yellow Urine Appearance Clear Clear Clear Urine Odor Normal Normal Normal Comment Void x1 in the toilet. Voiding Methods Urinal Toilet Urinal Data Completed and Pending Completed studies during hospitalization [Text1]: COMPARISON: No exams were available for comparison FINDINGS: CHEST: PULMONARY ARTERIES: There are no central intraluminal filling defects to suggest acute central pulmonary emboli.Opacification of the segmental pulmonary arteries is less than optimal. LUNGS: There are extensive bilateral interstitial and partially confluent infiltrates throughout both lung yi. No obvious honeycombing. Tiny amount of left pleural fluid.. No pneumothorax. MEDIASTINUM: Small lymph nodes are noted in both daryl as well as in the subcarinal region. No adenopathy in the anterior mediastinal fat. No supraclavicular adenopathy. There is no axillary adenopathy. There is a hiatal hernia and there is an eccentric left-sided mural mass at this level suspicious for possible malignancy in the lower esophagus and requiring endoscopy. No obvious adjacent adenopathy nor adenopathy in the epigastric region.Visualized thyroid unremarkable. CARDIAC: Heart size is normal. There is no pericardial effusion.Caliber of the thoracic aorta is within normal limits. There is no evidence of shift of the interventricular septum. PARTIALLY VISUALIZED UPPERMOST ABDOMEN: No adrenal masses. Hepatic steatosis without obvious discrete focal hepatic lesions evident. OSSEOUS: There is a benign-appearing lesion in the T11 vertebral body which has the appearance of an intraosseous hemangioma. No truly lytic lesions identified. IMPRESSION: 1. No evidence of acute pulmonary emboli. No evidence of pulmonary infarction. 2. Extensive interstitial and partially confluent infiltrates throughout both lung yi, not associated with large pleural effusions. There is a tiny amount of left pleural fluid. 3. Small lymph nodes are noted in the hilar regions and subcarinal region. 4. There is a hiatal hernia and there is a suggestion of a concerning eccentric left-sided mass at the GE junction which is suspicious for possible neoplasm. Recommend consultation for endoscopy. Labs on day of discharge: Labs from last 24 hours 05/30/20 05/30/20 05/30/20 06:30 06:30 06:30 WBC 19.91 H D RBC 4.69 Hgb 13.3 L Hct 40.6 MCV 86.6 MCH 28.4 MCHC 32.8 RDW 12.0 Plt Count 600 H MPV 9.2 Immature Gran % 0.8 Neutrophils % 85.1 Lymphocytes % 8.1 Monocytes % 5.8 Eosinophils % 0.0 Basophils % 0.2 Nucleated RBC % 0 Absolute Neutrophils 16.94 H Absolute Lymphocytes 1.61 Absolute Monocytes 1.15 H Absolute Eosinophils 0.00 Absolute Basophils 0.04 Sodium 141 Potassium 3.6 Chloride 105 Carbon Dioxide 25.9 Anion Gap 10.1 BUN 21 H Creatinine 0.9 Estimated GFR/1.73 m2 >= 60.00 Glucose 156 H Hemoglobin A1c 6.8 H Calcium 8.7 Procalcitonin Urine Legionella Ag 05/29/20 05/28/20 06:50 19:54 WBC RBC Hgb Hct MCV MCH MCHC RDW Plt Count MPV Immature Gran % Neutrophils % Lymphocytes % Monocytes % Eosinophils % Basophils % Nucleated RBC % Absolute Neutrophils Absolute Lymphocytes Absolute Monocytes Absolute Eosinophils Absolute Basophils Sodium Potassium Chloride Carbon Dioxide Anion Gap BUN Creatinine Estimated GFR/1.73 m2 Glucose Hemoglobin A1c Calcium Procalcitonin 0.2 Urine Legionella Ag Negative 05/29/20 06:50 Sputum Sputum Culture - Pending 05/29/20 09:53 Blood Blood Culture - Pending 05/29/20 09:44 Blood Blood Culture - Pending Preliminary micro results at discharge 05/29/20 06:50 Sputum Culture - Pending Sputum 05/29/20 09:53 Blood Culture - Pending Blood 05/29/20 09:44 Blood Culture - Pending Blood [facility] [place] Medical History (Updated 05/30/20 @ 11:17 by Stephanie Zamarripa NP) BPH NOS w/o ur obs/LUTS Encounter for screening for malignant neoplasm of rectum Hemorrhoids (03/03/03) Hiatal hernia Hyperlipidemia (06/02/12) Knee pain bilateral pat. fem. 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 Lt bilat pat.fem arthritis Nasal congestion Screening for malignant neoplasm of the rectum + stools blood Seasonal allergies Sinusitis Skin tag of anus (08/12/15) Surgical History (Updated 05/29/20 @ 09:15 by Stephanie Zamarripa NP) Colonoscopy - MAC H/O left knee surgery excision prepatellar mass x2 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) Status post tendon repair (12/11/12) Left index finger Family History Mother , 94 Acquired hypothyroidism Father , 75's Essential hypertension Heart disease Brother Acquired hypothyroidism Brother , 28 Substance abuse Social History Smoking/Tobacco Use Status: Former Tobacco Use Second Hand Exposure: Yes Smoking risk assessment performed?: Yes Alcohol Intake: current Alcohol Intake frequency: a few times a month Alcohol type: beer, wine and hard liquor Drug use: Never Caregiver/Support person: No Household members: spouse Housing: house Communication Needs: None Do you need help understanding health information?: Never Pets and animals: No Sexually active: Yes Do you think of yourself as: straight/heterosexual Current gender identity: male What is your relationship status?: How often do you talk on the phone with friends or family?: three or more times per week How often do you get together with friends or relatives?: never How often do you attend islam or voodoo services?: decline to answer Do you belong to any clubs or organized social groups?: yes Panel score (0-1 are the most socially isolated patients): 3 Seatbelt use: always Helmet use: No Drive intox or ride w/intox crew car driver: No
--- NOTE | 2020-05-30 17:07 | PDOC.CMDIS ---
LACE Index Scoring Tool - Questions: Length of Stay (in days): 2 Acuity (Admit via E.D.?): Yes E.D. Visits: 1 - Answers: Total Score: 6 Risk of Readmission: Low Risk Care Management Discharge Reason for Hospitalization: CAP Discharge Plan: Bryan will return home when ready per MD. He will follow up with his PCP and plan of care as prescribed. No additional service supports anticipated at this time. He will transport via private vehicle with his . Patient/Family Education Needs: Review discharge instructions, discuss Ask Me Three.
[2020-05-30 23:43] LABS: Streptococcus Pneumoniae Ag, U Negative (Negative)
[2020-06-01 01:04] LABS: Mycoplasma Pneumoniae PCR Negative; Specimen source SPUTUM
== END 2020-05-30 12:56 | disposition home or self-care (01) ==
LOC: ER 19:02 → MS 19:52
PROVIDERS: Nurse Practitioner Family; Admitting Provider Internal Medicine; Emergency Provider Physician Assistant; PCP Family Medicine; Visit Provider Internal Medicine
DX: J18.9 Pneumonia, unspecified organism (principal); K44.9 Diaphragmatic hernia without obstruction or gangrene; K21.9 Gastro-esophageal reflux disease without esophagitis; N40.0 Benign prostatic hyperplasia without lower urinary tract symptoms; E78.5 Hyperlipidemia, unspecified; Z20.822 Contact with and (suspected) exposure to COVID-19; Z87.891 Personal history of nicotine dependence
CPT/HCPCS: 36415; 71275; 80048; 80053; 82805; 84145; 87040; 87449; 93005; 94618; 94640; 96361; 96365; 96375; 99220; 99226; 99239; 99285; J1650; 36600; 83036; 83735; 84484; 85025; 85610; 85730; 87070; 87205; 87581; 87899; 93010; 94667; 99217; G0378; J0696; J1956; J2930; J3490; J7512; J7613; J7620

== ENCOUNTER 2020-06-02 04:26 | Outpatient (CLI) | payer MEDICARE, BC, SELFPAY ==
[2020-06-02 13:22] LABS: Abs Immature Grans 0.07 10^3/uL (0.0-0.06); Absolute Basophil Count 0.02 10^3/uL (0.0-0.2); Basophils % 0.1; Eosinophils % 0.1; HCT 47.6 % (40.0-50.0); HGB 15.6 g/dL (13.5-17.5); Immature Grans % 0.5; Lymphocytes % 4.8; MCH 28.6 pg (27.0-33.0); MCHC 32.8 % (32.0-36.0); MCV 87.2 fL (80-95); MPV 8.8 fL (8.0-11.0); Monocytes % 1.7; Neutrophils % 92.8; Nucleated RBC 0 %; Platelet Count 607 10^3/uL (130-400); RBC 5.46 10^6/uL (4.36-5.78); RDW 12.1 % (11.8-14.1); RDW-SD 38.5 fL; WBC 15.12 10^3/uL (4.4-10.8)
[2020-06-02 13:26] LABS: Absolute Eosinophil Count 0.02 10^3/uL (0.0-0.7); Absolute Lymphocyte Count 0.73 10^3/uL (1.2-3.4); Absolute Monocyte Count 0.26 10^3/uL (0.1-0.8); Absolute Neutrophil Count 14.03 10^3/uL (1.2-6.7)
[2020-06-02 14:01] LABS: Anion Gap 6.2 mmol/L (3-11); BUN 18 mg/dL (7-18); CO2 26.8 mmol/L (21.0-32.0); CREATININE 0.9 mg/dL (0.70-1.30); Calcium 8.6 mg/dL (8.5-10.1); Chloride 105 mmol/L (98-107); Glucose 137 mg/dL (74-106); Sodium 138 mmol/L (136-145)
== END 2020-06-02 04:27 | disposition home or self-care (01) ==
PROVIDERS: PCP Family Medicine; Visit Provider Nurse Practitioner Family
DX: J18.9 Pneumonia, unspecified organism (principal)
CPT/HCPCS: 36415; 80048; 85025

== ENCOUNTER → 2020-06-05 08:52 | Outpatient (BNVA) | payer MEDICARE, BC, SELFPAY | PROVIDERS: PCP Family Medicine; Referring Provider Family Medicine; Visit Provider Surgery | DX: K21.9 Gastro-esophageal reflux disease without esophagitis (principal); K44.9 Diaphragmatic hernia without obstruction or gangrene; J18.9 Pneumonia, unspecified organism; R93.3 Abnormal findings on diagnostic imaging of other parts of digestive tract; E11.9 Type 2 diabetes mellitus without complications; Z79.84 Long term (current) use of oral hypoglycemic drugs | CPT/HCPCS: 99202; 99214 ==

== ENCOUNTER 2020-06-18 12:57 | Outpatient (CLI) | payer MEDICARE, BC, SELFPAY ==
--- NOTE | 2020-06-18 09:30 | DI.RAD_ITS ---
EXAM: XR CHEST 2V PA LATERAL CLINICAL HISTORY: shortness of breath, R06.02. TECHNIQUE: 2D digital imaging was performed. COMPARISON: No prior exams are available for comparison FINDINGS: Heart size is upper normal. The mediastinum is not widened. There is extensive bilateral interstitial disease throughout both lung yi. Also pleural thickeni ng. Elevation the right hemidiaphragm. A stellate density seen in the mid lateral right lung measur ing approximately 1.5 x 1.5 cm. Blunting of both costophrenic angles is noted as well as some scarri ng in the right lung base. There also appear to be small bilateral pneumothoraces, possibly chronic. Also bilateral subtle nodular infiltrates. IMPRESSION: Extensive bilateral pulmonary disease which most probably has chronic component in addition to possib le acute or subacute findings. In addition, there is a stellate density in the lateral right lung. Chest CT scan is recommended to rule out malignancy. DATA REPOSITORY: RADIATION DOSE DELIVERED:
== END 2020-06-18 13:17 ==
PROVIDERS: PCP Family Medicine; Visit Provider Family Medicine
DX: R06.02 Shortness of breath (principal); J98.4 Other disorders of lung; R91.8 Other nonspecific abnormal finding of lung field
CPT/HCPCS: 71046

== ENCOUNTER 2020-06-19 10:14 | Inpatient (IN) | payer MEDICARE, BC, SELFPAY ==
[2020-06-19] VITALS (51 sets, daily range): BP systolic 106–138; BP diastolic 53–93; PULSE 74–103; RESP 15–44; TEMP 36.5–37.5; O2SAT 84–99
--- NOTE | 2020-06-19 10:15 | DI.CT_ITS ---
EXAM: CT CHEST PE CTA CLINICAL HISTORY: hypoxia. TECHNIQUE: Imaging Protocol: CT angiography of the chest was performed using pulmonary embolus raffi col. Multi planar reconstructions were performed. CONTRAST MATERIAL: Intravenous: Omnipaque 350 Contrast volume: 100 cc COMPARISON: CT CT CHEST PE CTA from 05/28/[address] CHEST PE CTA from 05/28/2020 CR XR CHEST 2V PA LATERAL from 06/18/2020 FINDINGS: CHEST: Slightly less than optimal bolus injection with respect of pulmonary arteries. PULMONARY ARTERIES: There are no obvious intraluminal filling defects to suggest acute pulmonary embo li. LUNGS: Extensive bilateral interstitial disease appears relatively stable when compared to CT scan of 05/28/2020. Slight increase in scarring lateral right lung base just above the elevated right hemid iaphragm. Some patchy bilateral infiltrates no pleural effusions. There is symmetrical pleural retr action over both lung yi, this explaining the presence of pseudo pneumothoraces on the chest x-ra y. MEDIASTINUM: Slightly prominent lymph nodes in the hilar regions. Cyst slightly prominent subcarinal lymph nodes. There is no adenopathy in the anterior mediastinal fat. Visualized thyroid unremarkab le.Hiatal hernia moderate-size CARDIAC: Heart size is normal. There is no pericardial effusion.Caliber of the thoracic aorta is wit hin normal limits. There is no evidence of shift of the interventricular septum. PARTIALLY VISUALIZED UPPERMOST ABDOMEN: No obvious findings OSSEOUS: No significant osseous lesions.. IMPRESSION: 1. No evidence of obvious acute pulmonary emboli. No evidence of pulmonary infarction. 2. Extensive bilateral interstitial disease and some patchy infiltrate. Mild increased scarring in t he lateral right lung base when compared to 05/28/2020. 3. No pleural effusions Findings discussed with ER physician following completion of the study 06/19/2020 RADIATION DOSE DELIVERED: LINK-TO-SR Total DLP DATA REPOSITORY: All CT scans at this facility are submitted to the National Radiology Data Registry (NRDR) Dose Index Registry (DIR) with the [employer] (A[employer]). RADIATION OPTIMIZATION: All CT scans at this facility use at least one of these dose optimization te chniques: automated exposure control; mA and/or kV adjustment per patient size (includes targeted exa ms where dose is matched to clinical indication); or iterative reconstruction.
--- NOTE | 2020-06-19 10:15 | RT.EKG_ITS ---
APPROVED REPORT Exam: Resting ECG Patient Location: E HR:86 bpm ECG Measurements Heart Rate 86 AXIS AL 134 P 10 QRSd 87 QRS 56 QT 366 T 14 QTc 437 Conclusion Sinus rhythm...normal P axis, V-rate 60- 99 Atrial premature complex...SV complex w/ short R-R interval
[2020-06-19] MEDS: Normal Saline Flush 10 ML SYR IVP ×2 (10:45→19:56)
[2020-06-19 10:56] LABS: Abs Immature Grans 0.07 10^3/uL (0.0-0.06); Absolute Basophil Count 0.06 10^3/uL (0.0-0.2); Absolute Eosinophil Count 0.25 10^3/uL (0.0-0.7); Absolute Lymphocyte Count 0.84 10^3/uL (1.2-3.4); Absolute Monocyte Count 0.78 10^3/uL (0.1-0.8); Basophils % 0.5; HCT 42.7 % (40.0-50.0); HGB 13.6 g/dL (13.5-17.5); Immature Grans % 0.6; Lymphocytes % 6.7; MCH 27.5 pg (27.0-33.0); MCHC 31.9 % (32.0-36.0); MCV 86.3 fL (80-95); MPV 8.9 fL (8.0-11.0); Monocytes % 6.2; Nucleated RBC 0 %; RBC 4.95 10^6/uL (4.36-5.78); RDW 12.4 % (11.8-14.1); WBC 12.54 10^3/uL (4.4-10.8)
[2020-06-19 10:57] LABS: Absolute Neutrophil Count 10.53 10^3/uL (1.2-6.7)
[2020-06-19 10:59] LABS: Platelet Count 326 10^3/uL (130-400)
[2020-06-19 11:09] LABS: INR 1.1 (0.9-1.1); PTT Activated 23.6 sec (21.0-27.5); Prothrombin Time 11.1 sec (9.3-11.0)
[2020-06-19 11:16] LABS: ALT 30 U/L (16-63); AST 17 U/L (15-37); Albumin 2.3 g/dL (3.4-5.0); Alkaline Phosphatase 87 U/L (46-116); BUN 11 mg/dL (7-18); Bilirubin, Total 0.5 mg/dL (0.2-1.0); CREATININE 0.8 mg/dL (0.70-1.30); Calcium 8.4 mg/dL (8.5-10.1); Chloride 102 mmol/L (98-107); Glucose 120 mg/dL (74-106); Potassium 3.9 mmol/L (3.5-5.1); Sodium 139 mmol/L (136-145); Total Protein 6.9 g/dL (6.4-8.2)
[2020-06-19 11:20] LABS: Troponin I < 0.05 ng/mL (<0.06)
--- NOTE | 2020-06-19 11:55 | W.ED.GENAD ---
Discharge Plan Disposition Patient Disposition: [facility] Condition: Serious Discharge Details Clinical Impression: Pulmonary infiltrate, Hypoxia, Interstitial lung disease Primary Care Provider: Maribeth Noonan ED Provider: Júnior Cortez Home Meds and New Rx's Prescriptions: No Action Centrum Silver Men 300-600-300 mcg tablet 1 tab PO DAILY RF: 0 glucosamine-chondroitin 900 mg tablet 900 mg PO DAILY RF: 0 metformin 500 mg tablet 500 mg PO BID Qty: 90 RF: 4 albuterol sulfate 90 mcg/actuation HFA aerosol inhaler 2 puff inhalation Q8H Qty: 6.7 RF: 4 (DME) lancets [OneTouch Delica Lancets] 33 gauge misc See Rx Instructions .ROUTE DAILY Qty: 100 RF: 5 (DME) Pharmacist Choice Strip See Rx Instructions .ROUTE .MEDSUPPLY Qty: 100 RF: 6 dry eye relief 1 drp ophthalmic (eye) PRN PRNRF: 0 guaifenesin [Mucinex] 600 mg Tablet Extended Release 12hr 600 mg PO BID Qty: 30 RF: 0 loratadine 10 mg Capsule 10 mg PO DAILY RF: 0 Medical Decision Making 12XX -- 69-year-old male recent hospitalization for multifocal pneumonia, completed antibiotic, continues to have cough and shortness of breath, hypoxic today at primary care clinic. Concern for persistent pneumonia versus worsening infection. Consider pulmonary embolism and Covid. Labs reviewed and leukocytosis noted. --I reviewed past medical record?CT of the chest from 05/28/2020: IMPRESSION: 1. No evidence of acute pulmonary emboli. No evidence of pulmonary infarction. 2. Extensive interstitial and partially confluent infiltrates throughout both lung yi, not associated with large pleural effusions. There is a tiny amount of left pleural fluid. 3. Small lymph nodes are noted in the hilar regions and subcarinal region. 4. There is a hiatal hernia and there is a suggestion of a concerning eccentric left-sided mass at the GE junction which is suspicious for possible neoplasm. Recommend consultation for endoscopy. 1428 --CT of the chest interpreted by radiology: IMPRESSION: 1. No evidence of obvious acute pulmonary emboli. No evidence of pulmonary infarction. 2. Extensive bilateral interstitial disease and some patchy infiltrate. Mild increased scarring in the lateral right lung base when compared to 05/28/2020. 3. No pleural effusions I [place] [facility] [place] to pulmonology and unfortunately they are at capacity and cannot accept patient in transfer. I called [facility] transfer center and requested transfer, they will see her at capacity and will review the case and call me back. We will cover with broad-spectrum antibiotics given potential for infectious etiology. Patient previously on Levaquin and Cefpodoxime. Will start doxycycline IV. 1509 -- Spoke with hospitalist at [facility] awaiting durability engineer to discuss. 153 -- Spoke with Dr. Robertson at [facility] who will accept patient in transfer. Unfortunately no beds currently available. Bed likely in the next 24 hours. No additional antibiotics recommended at this time. Plan to hospitalize here pending transfer. Hospitalist paged. Patient reassessed, stable, saturating lower 90s on 4 L, notes no shortness of breath while at rest. 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 Will consult respiratory therapist. 154 --I spoke with hospitalist on-call Dr. Frye who will admit the patient pending transfer. Lab Data Lab results reviewed: Yes I reviewed the patient's lab results. Labs: 06/19/20 12:10 Blood Blood Culture - Pending 06/19/20 12:15 Blood Blood Culture - Pending Laboratory Tests Range/Units 06/19/20 06/19/20 06/19/20 10:45 10:45 10:45 WBC (4.4-10.8) 10^3/uL 12.54 H RBC (4.36-5.78) 10^6/uL 4.95 Hgb (13.5-17.5) g/dL 13.6 Hct (40.0-50.0) % 42.7 MCV (80-95) fL 86.3 MCH (27.0-33.0) pg 27.5 MCHC (32.0-36.0) % 31.9 L RDW (11.8-14.1) % 12.4 Plt Count (130-400) 10^3/uL 326 D MPV (8.0-11.0) fL 8.9 Immature Gran % 0.6 Neutrophils % 84.0 Lymphocytes % 6.7 Monocytes % 6.2 Eosinophils % 2.0 Basophils % 0.5 Nucleated RBC % % 0 Absolute Neutrophils (1.2-6.7) 10^3/uL 10.53 H Absolute Lymphocytes (1.2-3.4) 10^3/uL 0.84 L Absolute Monocytes (0.1-0.8) 10^3/uL 0.78 Absolute Eosinophils (0.0-0.7) 10^3/uL 0.25 Absolute Basophils (0.0-0.2) 10^3/uL 0.06 PT (9.3-11.0) sec 11.1 H INR (0.9-1.1) 1.1 APTT (21.0-27.5) sec 23.6 VBG Lactate (0.6-1.4) mmol/L Sodium (136-145) mmol/L 139 Potassium (3.5-5.1) mmol/L 3.9 Chloride (98-107) mmol/L 102 Carbon Dioxide (21.0-32.0) mmol/L 28.0 Anion Gap (3-11) mmol/L 9.0 BUN (7-18) mg/dL 11 Creatinine (0.70-1.30) mg/dL 0.8 Estimated GFR/1.73 m2 (mL/min/1.73m2) >= 60.00 Glucose (74-106) mg/dL 120 H Calcium (8.5-10.1) mg/dL 8.4 L Total Bilirubin (0.2-1.0) mg/dL 0.5 AST (15-37) U/L 17 ALT (16-63) U/L 30 Alkaline Phosphatase (46-116) U/L 87 Troponin I (<0.06) ng/mL < 0.05 Total Protein (6.4-8.2) g/dL 6.9 Albumin (3.4-5.0) g/dL 2.3 L COVID-19 Source SARS-CoV-2 (PCR) (Negative) Range/Units 06/19/20 06/19/20 11:30 12:15 WBC (4.4-10.8) 10^3/uL RBC (4.36-5.78) 10^6/uL Hgb (13.5-17.5) g/dL Hct (40.0-50.0) % MCV (80-95) fL MCH (27.0-33.0) pg MCHC (32.0-36.0) % RDW (11.8-14.1) % Plt Count (130-400) 10^3/uL MPV (8.0-11.0) fL Immature Gran % Neutrophils % Lymphocytes % Monocytes % Eosinophils % Basophils % Nucleated RBC % % Absolute Neutrophils (1.2-6.7) 10^3/uL Absolute Lymphocytes (1.2-3.4) 10^3/uL Absolute Monocytes (0.1-0.8) 10^3/uL Absolute Eosinophils (0.0-0.7) 10^3/uL Absolute Basophils (0.0-0.2) 10^3/uL PT (9.3-11.0) sec INR (0.9-1.1) APTT (21.0-27.5) sec VBG Lactate (0.6-1.4) mmol/L 0.8 Sodium (136-145) mmol/L Potassium (3.5-5.1) mmol/L Chloride (98-107) mmol/L Carbon Dioxide (21.0-32.0) mmol/L Anion Gap (3-11) mmol/L BUN (7-18) mg/dL Creatinine (0.70-1.30) mg/dL Estimated GFR/1.73 m2 (mL/min/1.73m2) Glucose (74-106) mg/dL Calcium (8.5-10.1) mg/dL Total Bilirubin (0.2-1.0) mg/dL AST (15-37) U/L ALT (16-63) U/L Alkaline Phosphatase (46-116) U/L Troponin I (<0.06) ng/mL Total Protein (6.4-8.2) g/dL Albumin (3.4-5.0) g/dL COVID-19 Source Nasopharyx SARS-CoV-2 (PCR) (Negative) Negative HPI General Mode of arrival: ambulatory. Date/Time Provider Initiated Documentation: 06/19/20 10:18. Limitations to Documentation: no limitations. Information obtained by: patient. HPI Narrative: 69-year-old male with history of recent multifocal pneumonia that required hospitalization, questionable esophageal mass on CT, here with shortness of breath. Patient notes he was treated with antibiotics during hospitalization and continued and completed antibiotic as prescribed after discharge. He notes despite antibiotics he continues to have symptoms over the past few weeks, worsening. He notes he has trouble with exertional activities and states even walking from his house to the barn causes severe shortness of breath. He went to primary care physician today and was noted to be saturating in the upper 70s on room air. Here he has been put on oxygen and notes that he is feeling better in terms of his shortness of breath. He denies associated chest pain. He has had intermittent low-grade fevers. Related Data Home Medications Medication Instructions Recorded Confirmed Dry Eye Relief 1 drp OPHTHALMIC (EYE) PRN PRN 09/02/17 06/19/20 loratadine 10 mg PO DAILY 11/23/18 06/19/20 antiarthritic combination no.2 900 900 mg PO DAILY 04/16/19 06/19/20 mg tablet ejstcefh-cbc-oyzds acid 300 1 tab PO DAILY 11/01/19 06/19/20 mcg-lycopene 600 mcg-lutein 300 mcg tablet guaifenesin [Mucinex] 600 mg PO BID #30 tab 05/30/20 06/19/20 metformin 500 mg tablet 500 mg PO BID #90 tab 06/04/20 06/19/20 albuterol sulfate 90 mcg/actuation 2 puff INHALATION Q8H #6.7 g 06/19/20 06/19/20 aerosol inhaler blood sugar diagnostic #100 ea 06/19/20 06/19/20 lancets 33 gauge #100 ea 06/19/20 06/19/20 Previous Rx's Medication Instructions Recorded guaifenesin [Mucinex] 600 mg PO BID #30 tab 05/30/20 metformin 500 mg tablet 500 mg PO BID #90 tab 06/04/20 albuterol sulfate 90 mcg/actuation 2 puff INHALATION Q8H #6.7 g 06/19/20 aerosol inhaler blood sugar diagnostic #100 ea 06/19/20 lancets 33 gauge #100 ea 06/19/20 Allergies Allergy/AdvReac Type Severity Reaction Status Date / Time Penicillins Allergy Unknown Childhood Verified 06/19/20 11:34 allergy General Stated Complaint: SOB BRANDO: 2 Review of Systems All systems reviewed & are unremarkable except as noted in HPI and below Constitutional Constitutional: Denies fever(s) Cardiovascular Cardiovascular: Reports dyspnea Respiratory Respiratory: Reports cough (Intermittently productive yellow sputum) and Reports dyspnea [facility] Medical History BPH NOS w/o ur obs/LUTS Encounter for screening for malignant neoplasm of rectum Hemorrhoids (03/03/03) Hiatal hernia Hyperlipidemia (06/02/12) Knee pain bilateral pat. fem. 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 Lt bilat pat.fem arthritis Nasal congestion Screening for malignant neoplasm of the rectum + stools blood Seasonal allergies Sinusitis Skin tag of anus (08/12/15) Surgical History Colonoscopy - MAC H/O left knee surgery excision prepatellar mass x2 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) Status post tendon repair (12/11/12) Left index finger Family History Mother , 94 Acquired hypothyroidism Father , 75's Essential hypertension Heart disease Brother Acquired hypothyroidism Brother , 28 Substance abuse Social History Smoking/Tobacco Use Status: Former Tobacco Use Second Hand Exposure: Yes Smoking risk assessment performed?: Yes Alcohol Intake: current Alcohol Intake frequency: a few times a month Alcohol type: beer, wine and hard liquor Drug use: Never Substance use type: does not use Caregiver/Support person: No Household members: spouse Housing: house Communication Needs: None Do you need help understanding health information?: Never Pets and animals: No Sexually active: Yes Do you think of yourself as: straight/heterosexual Current gender identity: male What is your relationship status?: How often do you talk on the phone with friends or family?: three or more times per week How often do you get together with friends or relatives?: never How often do you attend cheondoism or oriental orthodox services?: decline to answer Do you belong to any clubs or organized social groups?: yes Panel score (0-1 are the most socially isolated patients): 3 Seatbelt use: always Helmet use: No Drive intox or ride w/intox dumpster driver: No Do you feel safe at home: Yes Do you feel safe in your relationship?: Yes Exam Const General: cooperative and no acute distress HENMT Head: normocephalic and atraumatic Mouth: moist mucous membranes Eyes Conjunctivae: normal conjunctivae Sclera: normal sclerae Neck Neck: trachea midline and supple Resp Auscultation: rales bilaterally, no rhonchi and no wheezes Cardio Rate: regular rate and not tachycardic Rhythm: regular rhythm GI Palpation: soft, not firm, no guarding, no masses, not rigid and nontender Skin General skin exam: no rashes or lesions noted Neuro General: patient alert, patient awake, patient oriented x3 and tone normal Extrem General: no calf tenderness and no edema Psych Appearance: grossly normal Mental Status: mental status grossly normal Course Vital Signs Vital signs: Vital Signs Temperature 37.2 C 06/19/20 10:19 Pulse 90 06/19/20 10:19 Respiratory Rate 30 H 06/19/20 10:19 Blood Pressure 115/62 06/19/20 10:19 Pulse Oximetry 94 06/19/20 10:19 Temperature 37.2 C 06/19/20 10:19 Temperature Source Skin 06/19/20 10:19 Pulse 90 06/19/20 10:19 Respiratory Rate 30 H 06/19/20 10:19 Respiratory Effort Incrsd Work of Breathing 06/19/20 11:39 Blood Pressure 115/62 06/19/20 10:19 Pulse Oximetry 94 06/19/20 10:19 Oxygen Delivery Method Nasal Cannula 06/19/20 10:19 Oxygen Flow Rate 2 06/19/20 10:19 Pain Level 0 06/19/20 10:19 Comment 06/19/20 10:19 Lab/Test Results Lab/Test Results: 06/19/20 11:25 Blood Blood Culture - Pending 06/19/20 11:25 Blood Blood Culture - Pending Laboratory Tests Range/Units 06/19/20 06/19/20 06/19/20 10:45 10:45 10:45 WBC (4.4-10.8) 10^3/uL 12.54 H RBC (4.36-5.78) 10^6/uL 4.95 Hgb (13.5-17.5) g/dL 13.6 Hct (40.0-50.0) % 42.7 MCV (80-95) fL 86.3 MCH (27.0-33.0) pg 27.5 MCHC (32.0-36.0) % 31.9 L RDW (11.8-14.1) % 12.4 Plt Count (130-400) 10^3/uL 326 D MPV (8.0-11.0) fL 8.9 Immature Gran % 0.6 Neutrophils % 84.0 Lymphocytes % 6.7 Monocytes % 6.2 Eosinophils % 2.0 Basophils % 0.5 Nucleated RBC % % 0 Absolute Neutrophils (1.2-6.7) 10^3/uL 10.53 H Absolute Lymphocytes (1.2-3.4) 10^3/uL 0.84 L Absolute Monocytes (0.1-0.8) 10^3/uL 0.78 Absolute Eosinophils (0.0-0.7) 10^3/uL 0.25 Absolute Basophils (0.0-0.2) 10^3/uL 0.06 PT (9.3-11.0) sec 11.1 H INR (0.9-1.1) 1.1 APTT (21.0-27.5) sec 23.6 Sodium (136-145) mmol/L 139 Potassium (3.5-5.1) mmol/L 3.9 Chloride (98-107) mmol/L 102 Carbon Dioxide (21.0-32.0) mmol/L 28.0 Anion Gap (3-11) mmol/L 9.0 BUN (7-18) mg/dL 11 Creatinine (0.70-1.30) mg/dL 0.8 Estimated GFR/1.73 m2 (mL/min/1.73m2) >= 60.00 Glucose (74-106) mg/dL 120 H Calcium (8.5-10.1) mg/dL 8.4 L Total Bilirubin (0.2-1.0) mg/dL 0.5 AST (15-37) U/L 17 ALT (16-63) U/L 30 Alkaline Phosphatase (46-116) U/L 87 Troponin I (<0.06) ng/mL < 0.05 Total Protein (6.4-8.2) g/dL 6.9 Albumin (3.4-5.0) g/dL 2.3 L COVID-19 Source Range/Units 06/19/20 11:30 WBC (4.4-10.8) 10^3/uL RBC (4.36-5.78) 10^6/uL Hgb (13.5-17.5) g/dL Hct (40.0-50.0) % MCV (80-95) fL MCH (27.0-33.0) pg MCHC (32.0-36.0) % RDW (11.8-14.1) % Plt Count (130-400) 10^3/uL MPV (8.0-11.0) fL Immature Gran % Neutrophils % Lymphocytes % Monocytes % Eosinophils % Basophils % Nucleated RBC % % Absolute Neutrophils (1.2-6.7) 10^3/uL Absolute Lymphocytes (1.2-3.4) 10^3/uL Absolute Monocytes (0.1-0.8) 10^3/uL Absolute Eosinophils (0.0-0.7) 10^3/uL Absolute Basophils (0.0-0.2) 10^3/uL PT (9.3-11.0) sec INR (0.9-1.1) APTT (21.0-27.5) sec Sodium (136-145) mmol/L Potassium (3.5-5.1) mmol/L Chloride (98-107) mmol/L Carbon Dioxide (21.0-32.0) mmol/L Anion Gap (3-11) mmol/L BUN (7-18) mg/dL Creatinine (0.70-1.30) mg/dL Estimated GFR/1.73 m2 (mL/min/1.73m2) Glucose (74-106) mg/dL Calcium (8.5-10.1) mg/dL Total Bilirubin (0.2-1.0) mg/dL AST (15-37) U/L ALT (16-63) U/L Alkaline Phosphatase (46-116) U/L Troponin I (<0.06) ng/mL Total Protein (6.4-8.2) g/dL Albumin (3.4-5.0) g/dL COVID-19 Source Nasopharyx
[2020-06-19 12:22] LABS: COVID-19 PCR Negative (Negative)
[2020-06-19 12:26] LABS: Lactate 0.8 mmol/L (0.6-1.4)
[2020-06-19] MEDS: DOXYCYCLINE 100 MG in Normal Saline 100 ML IVPB (15:02)
--- NOTE | 2020-06-19 15:06 | NUR.NOTE ---
pt provided with meal tray Nursing Note:
[2020-06-19] MEDS: Famotidine 20 MG TAB PO (18:19)
[2020-06-19] MEDS: Heparin 5,000 UNITS/ML VIAL 5000 UNITS SC (18:19)
--- NOTE | 2020-06-19 19:48 | HPE_ITS ---
Date of service: 06/19/20 Time of Service: 17:28 Assessment and Plan Assessment and plan (1) Interstitial lung disease: Status: Acute Assessment and plan: Uncertain this is infectious though there are i nfiltrates present as well. Did initiate doxycycline on admission to cover atypical organisms. Tranferring to [facility] for pulmonary evaluation when bed available. (2) Diabetes: Status: Chronic Assessment and plan: On metformin. A1c of 6.8 on 05/30/20 Diabetic diet Qualifiers: Diabetes mellitus type: type 2 Diabetes mellitus termite exterminator helper insulin use: without termite exterminator helper use Diabetes mellitus complication status: without complication Qualified Code(s): E11.9 - Type 2 diabetes mellitus without complications (3) Hypoxia: Status: Acute Assessment and plan: Current O2 saturations in the low-mid 90's on 4L NC Titrate to comfort and above 92%. History of Present Illness History of Present Illness Chief Complaint: Shortness of Air Narrative: 69-year-old male with history of DM2, GERD, recent multifocal pneumonia that required hospitalization, questionable esophageal mass on CT, presented to the ED with shortness of breath. Patient notes he was treated with antibiotics during hospitalization and completed outpt antibiotic as prescribed after discharge. He notes despite antibiotics he continued to have symptoms that have been worsening. He endorsed exertional dyspnea. He was seen at his primary care office on day of admission and was noted to have room air oxygen saturations in the upper 70s on room air. In the ED supplemental oxygen initiated and he noted improvement in his shortness of air. He denied associated chest pain. He has had intermittent low-grade fevers. His WBC count was 12.54, electrolytes normal, glucose 120. CT chest showed no evidence of obvious acute pulmonary emboli. No evidence of pulmonary infarction. Extensive bilateral interstitial disease and some patchy infiltrate. Mild increased scarring in the lateral right lung base when compared to 05/28/2020. ED physician contacted [facility] for transfer and the patient was accepted when a bed is available; likely in 12-24H. Review of Systems All systems reviewed & are unremarkable except as noted in HPI and below PFSH Medical History BPH NOS w/o ur obs/LUTS Encounter for screening for malignant neoplasm of rectum Hemorrhoids (03/03/03) Hiatal hernia Hyperlipidemia (03/01/13) Knee pain bilateral pat. fem. 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 Lt bilat pat.fem arthritis Nasal congestion Screening for malignant neoplasm of the rectum + stools blood Seasonal allergies Sinusitis Skin tag of anus (08/12/15) Surgical History Colonoscopy - MAC H/O left knee surgery excision prepatellar mass x2 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) Status post tendon repair (12/11/12) Left index finger Family History Mother , 94 Acquired hypothyroidism Father , 75's Essential hypertension Heart disease Brother Acquired hypothyroidism Brother , 28 Substance abuse Social History Smoking/Tobacco Use Status: Former Tobacco Use Second Hand Exposure: Yes Smoking risk assessment performed?: Yes Alcohol Intake: current Alcohol Intake frequency: a few times a month Alcohol type: beer, wine and hard liquor Drug use: Never Substance use type: does not use Caregiver/Support person: No Household members: spouse Housing: house Communication Needs: None Do you need help understanding health information?: Never Pets and animals: No Sexually active: Yes Do you think of yourself as: straight/heterosexual Current gender identity: male What is your relationship status?: How often do you talk on the phone with friends or family?: three or more times per week How often do you get together with friends or relatives?: never How often do you attend tenriism or temple services?: decline to answer Do you belong to any clubs or organized social groups?: yes Panel score (0-1 are the most socially isolated patients): 3 Seatbelt use: always Helmet use: No Drive intox or ride w/intox trackless trolley driver: No Do you feel safe at home: Yes Do you feel safe in your relationship?: Yes Meds Home Medications and Allergies Allergies Allergy/AdvReac Type Severity Reaction Status Date / Time Penicillins Allergy Unknown Childhood Verified 06/19/20 11:34 allergy Home Medications Medication Instructions Recorded Confirmed Type Dry Eye Relief 1 drp OPHTHALMIC (EYE) PRN PRN 09/02/17 06/19/20 History loratadine 10 mg PO DAILY 11/23/18 06/19/20 History antiarthritic combination no.2 900 900 mg PO DAILY 04/16/19 06/19/20 History mg tablet acjxfxoe-dvt-jblsh acid 300 1 tab PO DAILY 11/01/19 06/19/20 History mcg-lycopene 600 mcg-lutein 300 mcg tablet guaifenesin [Mucinex] 600 mg PO BID #30 tab 05/30/20 06/19/20 Rx metformin 500 mg tablet 500 mg PO BID #90 tab 06/04/20 06/19/20 Rx albuterol sulfate 90 mcg/actuation 2 puff INHALATION Q8H #6.7 g 06/19/20 06/19/20 Rx aerosol inhaler blood sugar diagnostic #100 ea 06/19/20 06/19/20 Rx lancets 33 gauge #100 ea 06/19/20 06/19/20 Rx Exam Const General: cooperative and acute distress mild (dyspnea with conversation) Nutritional Appearance: average body habitus Orientation: alert and oriented x3 Eyes Sclera: sclerae normal Pupils: PERRL Resp Effort & Inspection: able to speak in complete sentences (with some soa.) Auscultation: crackles bilaterally throughout Cardio Rate: regular rate Rhythm: regular rhythm Heart Sounds: S1 normal and S2 normal GI Palpation: soft and nontender Auscultation: normal bowel sounds Neuro General: patient alert, patient oriented x3 and no focal motor deficits Cognition: normal cognition Extrem General: normal to inspection, no pedal edema and no calf tenderness Results Labs Result diagrams: 06/19/20 10:45 06/19/20 10:45 Labs: Laboratory Results - last 24 hr 06/19/20 06/19/20 06/19/20 10:45 10:45 10:45 WBC 12.54 H RBC 4.95 Hgb 13.6 Hct 42.7 MCV 86.3 MCH 27.5 MCHC 31.9 L RDW 12.4 Plt Count 326 D MPV 8.9 Immature Gran % 0.6 Neutrophils % 84.0 Lymphocytes % 6.7 Monocytes % 6.2 Eosinophils % 2.0 Basophils % 0.5 Nucleated RBC % 0 Absolute Neutrophils 10.53 H Absolute Lymphocytes 0.84 L Absolute Monocytes 0.78 Absolute Eosinophils 0.25 Absolute Basophils 0.06 PT 11.1 H INR 1.1 APTT 23.6 VBG Lactate Sodium 139 Potassium 3.9 Chloride 102 Carbon Dioxide 28.0 Anion Gap 9.0 BUN 11 Creatinine 0.8 Estimated GFR/1.73 m2 >= 60.00 Glucose 120 H Calcium 8.4 L Total Bilirubin 0.5 AST 17 ALT 30 Alkaline Phosphatase 87 Troponin I < 0.05 Total Protein 6.9 Albumin 2.3 L COVID-19 Source SARS-CoV-2 (PCR) 06/19/20 06/19/20 11:30 12:15 WBC RBC Hgb Hct MCV MCH MCHC RDW Plt Count MPV Immature Gran % Neutrophils % Lymphocytes % Monocytes % Eosinophils % Basophils % Nucleated RBC % Absolute Neutrophils Absolute Lymphocytes Absolute Monocytes Absolute Eosinophils Absolute Basophils PT INR APTT VBG Lactate 0.8 Sodium Potassium Chloride Carbon Dioxide Anion Gap BUN Creatinine Estimated GFR/1.73 m2 Glucose Calcium Total Bilirubin AST ALT Alkaline Phosphatase Troponin I Total Protein Albumin COVID-19 Source Nasopharyx SARS-CoV-2 (PCR) Negative Last Vital Signs Temp 36.9 C 06/19/20 17:47 Pulse 86 06/19/20 17:07 Resp 28 H 06/19/20 17:07 BP 112/53 L 06/19/20 17:07 Pulse Ox 93 06/19/20 17:47 COVID-19 Screening Have you, or household traveled for leisure in last 14 days?: No Had IN PERSON contact w/suspected or confirmed C-19 person: No
[2020-06-20] VITALS (18 sets, daily range): BP systolic 98–120; BP diastolic 56–90; PULSE 62–86; RESP 21–32; TEMP 36.3–36.7; O2SAT 90–97
[2020-06-20] MEDS: Heparin 5,000 UNITS/ML VIAL 5000 UNITS SC ×3 (02:55→17:00)
[2020-06-20] MEDS: Normal Saline Flush 10 ML SYR IVP ×3 (03:06→16:11)
[2020-06-20] MEDS: DOXYCYCLINE 100 MG in Normal Saline 100 ML IVPB ×2 (03:07→16:09)
[2020-06-20 06:36] LABS: Abs Immature Grans 0.02 10^3/uL (0.0-0.06); Absolute Basophil Count 0.08 10^3/uL (0.0-0.2); Absolute Eosinophil Count 0.58 10^3/uL (0.0-0.7); Absolute Lymphocyte Count 1.16 10^3/uL (1.2-3.4); Absolute Monocyte Count 0.57 10^3/uL (0.1-0.8); Absolute Neutrophil Count 4.83 10^3/uL (1.2-6.7); Basophils % 1.1; HCT 39.5 % (40.0-50.0); HGB 12.5 g/dL (13.5-17.5); Immature Grans % 0.3; MCH 27.6 pg (27.0-33.0); MCHC 31.6 % (32.0-36.0); MCV 87.2 fL (80-95); MPV 8.9 fL (8.0-11.0); Monocytes % 7.9; Neutrophils % 66.7; Nucleated RBC 0 %; Platelet Count 320 10^3/uL (130-400); RBC 4.53 10^6/uL (4.36-5.78); RDW 12.5 % (11.8-14.1); RDW-SD 39.9 fL; WBC 7.24 10^3/uL (4.4-10.8)
[2020-06-20 06:43] LABS: Anion Gap 7.6 mmol/L (3-11); BUN 12 mg/dL (7-18); CO2 29.4 mmol/L (21.0-32.0); CREATININE 0.7 mg/dL (0.70-1.30); Calcium 8.2 mg/dL (8.5-10.1); Chloride 103 mmol/L (98-107); Glucose 100 mg/dL (74-106); Potassium 3.8 mmol/L (3.5-5.1); Sodium 140 mmol/L (136-145)
[2020-06-20] MEDS: Famotidine 20 MG TAB PO (08:04)
[2020-06-20] MEDS: Loratidine 10 MG TAB PO (08:04)
--- NOTE | 2020-06-20 08:59 | INITIAL_ITS ---
- If Service Date Differs Date of service: 06/20/20 Time of Service: 08:59 Care Management Initial Assess REASON FOR HOSPITALIZATION:: Interstitial lung disease, acute hypoxic, respiratory failure PAST MEDICAL HISTORY/PAST SURGICAL HISTORY:: BPH NOS w/o ur obs/LUTS. Encounter for screening for malignant neoplasm of rectum. Hemorrhoids (03/03/03). Hiatal hernia. Hyperlipidemia (06/02/12). Knee pain. bilateral pat. fem. arthritis. Lactose intolerance (08/12/15). Mycotic arthritis of lower leg. knee pain Lt bilat pat.fem arthritis. Nasal congestion. Screening for malignant neoplasm of the rectum. + stools blood. Seasonal allergies. Sinusitis. Skin tag of anus (08/12/15). Colonoscopy - MAC. H/O left knee surgery. excision prepatellar mass x2. 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 Status post tendon repair (12/11/12). 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 He reported relocating to [place] from [place] twenty five years ago for work and traveling all over [place]. Bryan reported retiring six years ago and reviewed his many hobbies and projects since custodial. I'm busier than I've ever been. He also laughed when sharing that he no longer fixes appliances and replaces them every six years so he does n't have to. He replaced the floors in his home himself ([address]) and has screened in his porch to name a few. He and his Gisselle share a full life they report feeling content with. After custodial Bryan took up Golf which he reports enjoying very much. Bryan and Gisselle reviewed their families and background collectively. Bryan reports he is a [place] but ineligible for service connection. CURRENT FUNCTIONAL STATUS:: Bryan remains pleasant in interaction. He is preparing for transfer. ADVANCE DIRECTIVES:: None on file at [facility]. Has patient been provided with info about the portal/API?: Yes Did the patient sign up for the portal?: Yes (Previously ) CODE STATUS:: Full Code INSURANCE COVERAGE / FINANCIAL ISSUES:: Medicare. BC/BS CURRENT HOME/COMMUNITY SERVICES/EQUIPMENT:: [facility] PRIMARY CARE PHYSICIAN:: [facility] POTENTIAL DISCHARGE NEEDS:: Follow up appointment with PCP. PATIENT/FAMILY EDUCATION NEEDS:: Review discharge instructions, discuss Ask Me Three. ANTICIPATED BARRIERS TO DISCHARGE:: None identified at this time. TRANSPORTATION:: Via private vehicle with his , Gisselle. PLAN:: Bryan will transfer to tertiary when bed becomes available. He will transport via EMS.
--- NOTE | 2020-06-20 10:04 | W.NUTRFU ---
Date of service: 06/20/20 Time of Service: 10:04 Nutritional Follow up NOTE: 69 year old male admitted with pulmonary infiltrate s/p PNA with hx of DM. Most recent A1c (05/30/20) 6.8% indicating well controlled DM with metformin at this time. Following diabetic low sodium diet with adequate intake. Not considered at nutritional risk at this time. Will continue to follow. Time Spent in Nutritional Counseling and Treatment: 0
--- NOTE | 2020-06-20 16:54 | W.PM.DS.N ---
Date of service: 06/20/20 Time of Service: 16:54 DS: Diagnosis Discharge Diagnosis (1) Interstitial lung disease: Status: Acute (2) Diabetes: Status: Chronic (3) Hypoxia: Status: Acute Discharge Plan Disposition Patient Disposition: GABI FOSTER ([facility]) Condition: Improving Discharge Details Reason For Visit: INTERSTITIAL LUNG DISEASE, ACUTE HYPOXIC RESPIRATO Admit Date/Time: 06/19/20 15:49 Admit Provider: Fidel Frye Attending Provider: Fidel Frye Primary Care Provider: Maribeth Noonan [facility] Course Hospital Course: 69-year-old male with history of DM2, GERD, recent multifocal pneumonia that required hospitalization, questionable esophageal mass on CT, presented to the ED with shortness of breath. Patient notes he was treated with antibiotics during hospitalization and completed outpt antibiotic as prescribed after discharge. He notes despite antibiotics he continued to have symptoms that have been worsening. He endorsed exertional dyspnea. He was seen at his primary care office on day of admission and was noted to have room air oxygen saturations in the upper 70s on room air. In the ED supplemental oxygen initiated and he noted improvement in his shortness of air. He denied associated chest pain. He has had intermittent low-grade fevers. His WBC count was 12.54, electrolytes normal, glucose 120. CT chest showed no evidence of obvious acute pulmonary emboli. No evidence of pulmonary infarction. Extensive bilateral interstitial disease and some patchy infiltrate. Mild increased scarring in the lateral right lung base when compared to 05/28/2020. Doxycycline 100mg IV BID initiated. He remained stable on 4L supplemental O2 per NC. His WBC count normalized. Transferring to [facility] for pulmonary evaluation/tx. Home Meds and New Rx's Prescriptions: New famotidine 20 mg Tablet 20 mg PO DAILY Qty: 0 RF: 0 doxycycline hyclate [Doxy-100] 100 mg Recon Soln 100 mg IVPB Q12H Qty: 0 RF: 0 Continued Centrum Silver Men 300-600-300 mcg tablet 1 tab PO DAILY RF: 0 glucosamine-chondroitin 900 mg tablet 900 mg PO DAILY RF: 0 metformin 500 mg tablet 500 mg PO BID Qty: 90 RF: 4 albuterol sulfate 90 mcg/actuation HFA aerosol inhaler 2 puff inhalation Q8H Qty: 6.7 RF: 4 (DME) lancets [OneTouch Delica Lancets] 33 gauge misc See Rx Instructions .ROUTE DAILY Qty: 100 RF: 5 (DME) Pharmacist Choice Strip See Rx Instructions .ROUTE .MEDSUPPLY Qty: 100 RF: 6 dry eye relief 1 drp ophthalmic (eye) PRN PRNRF: 0 guaifenesin [Mucinex] 600 mg Tablet Extended Release 12hr 600 mg PO BID Qty: 30 RF: 0 loratadine 10 mg Capsule 10 mg PO DAILY RF: 0 Discharge Orders Discharge Orders: Discharge Order (Routine); Ordered 06/20/20 Ordered By: Fidel Frye DS: Summary Time Spent with Patient providing and/or coordinating discharge services: Greater than 30 minutes Status at Discharge Functional status at discharge: independent ambulation Overall status at discharge: patient is progressing back to baseline Mental Status: mental status grossly normal Speech and Movement: speech and movement normal Mood: congruent mood Affect: normal affect Exam Psych Mental Status: mental status grossly normal Speech and Movement: speech and movement normal Mood: congruent mood Affect: normal affect DS: Data Vitals/I&O Vitals and I&O: Vital Signs Temperature 36.6 C 06/20/20 16:18 Temperature Source Temporal Artery Scan 06/20/20 16:18 Pulse 86 06/20/20 16:18 Pulse 79 06/20/20 16:00 Respiratory Rate 22 06/20/20 16:18 Respiratory Effort 06/20/20 16:18 Respiratory Depth Shallow 06/20/20 16:18 Respiratory Pattern Normal 06/20/20 16:18 Blood Pressure 120/90 06/20/20 16:18 Blood Pressure Mean 100 06/20/20 16:18 Blood Pressure Position Sitting 06/20/20 16:18 Pulse Oximetry 95 06/20/20 16:18 Oxygen Delivery Method Nasal Cannula 06/20/20 16:18 Oxygen Flow Rate 2 06/20/20 16:18 Pain Level 0 06/20/20 09:00 Comment 06/19/20 10:19 Intake & Output 06/19/20 06/20/20 06/20/20 23:59 11:59 23:59 Intake Total 350 / 350 100 / 600 500 / 600 Output Total 1025 / 1025 650 / 1050 400 / 1050 Balance -675 / -675 -550 / -450 100 / -450 Weight 75.7 kg 75.5 kg Intake: IV 100 / 100 100 / 100 Oral 250 / 250 500 / 500 Output: Urine 1025 / 1025 650 / 1050 400 / 1050 Other: Urine Color Yellow Yellow Yellow Urine Appearance Clear Clear Clear Urine Odor Normal None Comment using urinal at bedside Stool Size Small Large Stool Characteristics Soft Soft Formed Formed Brown Brown Voiding Methods Urinal Urinal Urinal Data Completed and Pending Labs on day of discharge: Labs from last 24 hours 06/20/20 06/20/20 06:20 06:20 WBC 7.24 D RBC 4.53 Hgb 12.5 L Hct 39.5 L MCV 87.2 MCH 27.6 MCHC 31.6 L RDW 12.5 Plt Count 320 MPV 8.9 Immature Gran % 0.3 Neutrophils % 66.7 Lymphocytes % 16.0 Monocytes % 7.9 Eosinophils % 8.0 Basophils % 1.1 Nucleated RBC % 0 Absolute Neutrophils 4.83 Absolute Lymphocytes 1.16 L Absolute Monocytes 0.57 Absolute Eosinophils 0.58 Absolute Basophils 0.08 Sodium 140 Potassium 3.8 Chloride 103 Carbon Dioxide 29.4 Anion Gap 7.6 BUN 12 Creatinine 0.7 Estimated GFR/1.73 m2 >= 60.00 Glucose 100 Calcium 8.2 L Preliminary micro results at discharge 06/19/20 12:10 Blood Culture - Preliminary Blood NO GROWTH 24 HOURS 06/19/20 12:15 Blood Culture - Preliminary Blood NO GROWTH 24 HOURS PFSH Medical History BPH NOS w/o ur obs/LUTS Encounter for screening for malignant neoplasm of rectum Hemorrhoids (03/03/03) Hiatal hernia Hyperlipidemia (06/02/12) Knee pain bilateral pat. fem. 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 Lt bilat pat.fem arthritis Nasal congestion Screening for malignant neoplasm of the rectum + stools blood Seasonal allergies Sinusitis Skin tag of anus (08/12/15) Surgical History Colonoscopy - MAC H/O left knee surgery excision prepatellar mass x2 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) Status post tendon repair (12/11/12) Left index finger Family History Mother , 94 Acquired hypothyroidism Father , 75's Essential hypertension Heart disease Brother Acquired hypothyroidism Brother , 28 Substance abuse Social History Smoking/Tobacco Use Status: Former Tobacco Use Second Hand Exposure: Yes Smoking risk assessment performed?: Yes Alcohol Intake: current Alcohol Intake frequency: a few times a month Alcohol type: beer, wine and hard liquor Drug use: Never Substance use type: does not use Caregiver/Support person: No Household members: spouse Housing: house Communication Needs: None Do you need help understanding health information?: Never Pets and animals: No Sexually active: Yes Do you think of yourself as: straight/heterosexual Current gender identity: male What is your relationship status?: How often do you talk on the phone with friends or family?: three or more times per week How often do you get together with friends or relatives?: never How often do you attend christianity or sikhism services?: decline to answer Do you belong to any clubs or organized social groups?: yes Panel score (0-1 are the most socially isolated patients): 3 Seatbelt use: always Helmet use: No Drive intox 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
== END 2020-06-20 17:55 | disposition short-term general hospital (02) | DRG 196 ==
LOC: ER 15:48 → ICU 17:23
PROVIDERS: Admitting Provider Family Medicine; Emergency Provider Student in an Organized Health Care Education/Training Program; PCP Family Medicine; Visit Provider Family Medicine
DX: J84.9 Interstitial pulmonary disease, unspecified (principal); J96.01 Acute respiratory failure with hypoxia; E11.9 Type 2 diabetes mellitus without complications; Z79.84 Long term (current) use of oral hypoglycemic drugs; K21.9 Gastro-esophageal reflux disease without esophagitis; N40.0 Benign prostatic hyperplasia without lower urinary tract symptoms; K64.8 Other hemorrhoids; K44.9 Diaphragmatic hernia without obstruction or gangrene; M17.0 Bilateral primary osteoarthritis of knee
CPT/HCPCS: 36410; 36415; 71275; 80048; 80053; 87040; 87635; 93005; 96365; 99222; 99239; 99285; 83605; 84484; 85025; 85610; 85730; 93010; J1644

== ENCOUNTER 2020-07-23 02:38 | Outpatient (CLI) | payer MEDICARE, BC, SELFPAY ==
[2020-07-23 10:26] LABS: Source Nasal/Nares
[2020-07-23 15:51] LABS: COVID-19 PCR Negative (Negative)
== END 2020-07-23 02:39 | disposition home or self-care (01) ==
LOC: LBO 02:39
PROVIDERS: PCP Family Medicine; Visit Provider Surgery
DX: Z20.822 Contact with and (suspected) exposure to COVID-19 (principal); Z01.818 Encounter for other preprocedural examination
CPT/HCPCS: 87635

== ENCOUNTER 2020-07-25 09:12 | Day surgery (SDC) | payer MEDICARE, BC, SELFPAY ==
--- NOTE | 2020-07-24 20:39 | HPE_ITS ---
Date of service: 07/25/20 Time of Service: 08:30 Assessment and Plan Assessment and plan (1) Pulmonary infiltrate: Status: Acute (2) Hypoxia: Status: Acute (3) Interstitial lung disease: Status: Acute (4) Lung mass: Status: Acute (5) SOB (shortness of breath): Status: Acute (6) Abnormal CT scan, esophagus: Status: Acute Assessment and plan: Informed consent is obtained for the procedural (explained in simple layman's terms that the pt and/or family could understand) explaining risks vs benefits and alternatives to the procedure and consequences if we do not do the procedure and need/rational for the procedure. Risks include but are not limited to: bleeding, infection, perforation of esophagus, stomach, colon, small intestines, bronchus or trachea, or PTX. This would necessitate emergency surgery to repair the damage w/ possible ostomy; and other associated complications w/ the required surgery. Also complications of anesthesia including aspiration, IA/CVA/. I did review his recent CT from [facility] in the notes from [facility]. I did review his pulmonary consult with [facility] on 07/11. I did review Dr. Noonan's notes. He is currently on 20 mg a day and will be tapering over a month's time. I did review his PFTs anesthesia. He is not currently on oxygen. (7) Hiatal hernia: Status: Acute (8) Multifocal pneumonia: Status: Acute (9) Diabetes: Status: Chronic Qualifiers: Diabetes mellitus complication status: without complication Diabetes mellitus watermaster insulin use: without watermaster use Diabetes mellitus type: type 2 Qualified Code(s): E11.9 - Type 2 diabetes mellitus without complications (10) Gastroesophageal reflux disease: Status: Acute Qualifiers: Esophagitis presence: without esophagitis Qualified Code(s): K21.9 - Gastro-esophageal reflux disease without esophagitis History of Present Illness Consults Consult date: 07/24/20 Narrative: He has a longstanding history of reflux that has not been treated. He is currently on Protonix. Currently his steroid dose is at 20mg Today he feels his breathing is good and he is not on home O2. [facility] Pulm is concerned could be from occult malignancy and does want him to have a EGD. Patient also had Hemoccult cards done and these were positive for occult blood. Pulm do not feel that his disease warrants a lung biopsy. Results of echo and PFTs from [facility] were reviewed. Notes from [facility] were reviewed. CTs and lab work from [facility] in [facility] are reviewed. Patient is having no chest pain or shortness of breath. He is having no cough. He is having no fever or chills . MPRESSION: 1. No evidence of obvious acute pulmonary emboli. No evidence of pulmonary infarction. 2. Extensive bilateral interstitial disease and some patchy infiltrate. Mild increased scarring in the lateral right lung base when compared to 05/28/2020. 3. No pleural effusions Echo from [facility]: EF 63% no pulm HTN no valular HDx. PFT's: were nl w/ diffusion pattern consistent w/ interstitial lung Dx [facility] was pleased he is responding to steroids, and does not feel he requires a lung Bx. Patient was hospitalized 318 and transferred to [facility] for evaluation by pulmonary. Results of PFT FTs and echo reviewed. Lab work that they ordered was all essentially normal including vasculitis work-up/lupus/myositis, etc. Surgery consult from 06/05/20 Recently dg w/ pneumonia and had a chest CT. still coughing up material. on 2 abx. no fevers/chills currently. He currently doesn't feel SOB. He Was in hospital for the pneumonia. He quit smoking in 1971- PPD. for 3-4 yrs in the . 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 No mi/cva. He was just recently diagnosed as being +dm and starting metformin. he Has a hx of GERD. He was not on meds for this. He got started on meds for reflux while he was in the hospital. The head bed is elevated . Does get problems w/ indigestion. He denies any swallowing problems. He last wt recently- but has had pneumonia and was in the hospital. He has not had problems with diarrhea from the antibiotics. He has not noticed any blood in his stools. Chest CT 05/28 Patient Name: JOSE IPNA #: [id number]: MS Ordering Provider: Jinny Lancaster DOAccount #: [id number]: DIS DIANA Primary Care Provider: My Zelaya of Exam: 05/28/20Sex: M : 9Age: 69 Exam(s) a CT:CT chest PE CTA EXAM: CT CHEST PE CTA CLINICAL HISTORY: sob, wheezing, chest tightness. TECHNIQUE: Imaging Protocol: CT angiography of the chest was performed using pulmonary embolus protocol. Multi planar reconstructions were performed. CONTRAST MATERIAL: Intravenous: Omnipaque 350 Contrast volume: 98 cc COMPARISON: No exams were available for comparison FINDINGS: CHEST: PULMONARY ARTERIES: There are no central intraluminal filling defects to suggest acute central pulmonary emboli.Opacification of the segmental pulmonary arteries is less than optimal. LUNGS: There are extensive bilateral interstitial and partially confluent infiltrates throughout both lung yi. No obvious honeycombing. Tiny amount of left pleural fluid.. No pneumothorax. MEDIASTINUM: Small lymph nodes are noted in both daryl as well as in the subcarinal region. No adenopathy in the anterior mediastinal fat. No supraclavicular adenopathy. There is no axillary adenopathy. There is a hiatal hernia and there is an eccentric left-sided mural mass at this level suspicious for possible malignancy in the lower esophagus and requiring endoscopy. No obvious adjacent adenopathy nor adenopathy in the epigastric region.Visualized thyroid unremarkable. CARDIAC: Heart size is normal. There is no pericardial effusion.Caliber of the thoracic aorta is within normal limits. There is no evidence of shift of the interventricular septum. PARTIALLY VISUALIZED UPPERMOST ABDOMEN: No adrenal masses. Hepatic steatosis without obvious discrete focal hepatic lesions evident. OSSEOUS: There is a benign-appearing lesion in the T11 vertebral body which has the appearance of an intraosseous hemangioma. No truly lytic lesions identified. IMPRESSION: 1. No evidence of acute pulmonary emboli. No evidence of pulmonary infarction. 2. Extensive interstitial and partially confluent infiltrates throughout both lung yi, not associated with large pleural effusions. There is a tiny amount of left pleural fluid. 3. Small lymph nodes are noted in the hilar regions and subcarinal region. 4. There is a hiatal hernia and there is a suggestion of a concerning eccentric left-sided mass at the GE junction which is suspicious for possible neoplasm. Recommend consultation for endoscopy Review of Systems All systems reviewed & are unremarkable except as noted in HPI and below PFSH Medical History (Updated 07/25/20 @ 09:30 by Leslye Maddox RN) BPH NOS w/o ur obs/LUTS Encounter for screening for malignant neoplasm of rectum Hemorrhoids (03/03/03) Hiatal hernia Hyperlipidemia (06/02/12) Knee pain bilateral pat. fem. 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 Lt bilat pat.fem arthritis Nasal congestion Pneumonia Screening for malignant neoplasm of the rectum + stools blood Seasonal allergies Sinusitis Skin tag of anus (08/12/15) Surgical History (Updated 07/25/20 @ 09:30 by Leslye Maddox RN) Colonoscopy - MAC H/O left knee surgery excision prepatellar mass x2 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) History of nasal surgery Status post tendon repair (12/11/12) Left index finger Family History Mother , 94 Acquired hypothyroidism Father , 75's Essential hypertension Heart disease Brother Acquired hypothyroidism Brother , 28 Substance abuse Social History Smoking/Tobacco Use Status: Former Tobacco Use Quit Date: 04/04/71 Second Hand Exposure: Yes Smoking risk assessment performed?: Yes Alcohol Intake: current Alcohol Intake frequency: a few times a month Alcohol type: beer, wine and hard liquor Drug use: Never Substance use type: does not use Caregiver/Support person: No Household members: spouse Housing: house Communication Needs: None Do you need help understanding health information?: Never Pets and animals: No Sexually active: Yes Do you think of yourself as: straight/heterosexual Current gender identity: male What is your relationship status?: How often do you talk on the phone with friends or family?: three or more times per week How often do you get together with friends or relatives?: never How often do you attend yazdanism or taoist services?: decline to answer Do you belong to any clubs or organized social groups?: yes Panel score (0-1 are the most socially isolated patients): 3 Seatbelt use: always Helmet use: No 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 Do you feel safe at home: Yes Do you feel safe in your relationship?: Yes Meds Allergies and Home Medications Allergies Allergy/AdvReac Type Severity Reaction Status Date / Time Penicillins Allergy Unknown Childhood Verified 07/25/20 09:29 allergy Home Medications Medication Instructions Recorded Confirmed Type Dry Eye Relief 1 p OPHTHALMIC (EYE) PRN PRN 09/02/17 07/25/20 History loratadine 10 mg PO DAILY 11/23/18 07/25/20 History antiarthritic combination no.2 900 900 mg PO DAILY 04/16/19 07/25/20 History mg tablet iymsahea-nnr-yvual acid 300 1 tab PO DAILY 11/01/19 07/25/20 History mcg-lycopene 600 mcg-lutein 300 mcg tablet metformin 500 mg tablet 500 mg PO BID #90 tab 06/04/20 07/25/20 Rx albuterol sulfate 90 mcg/actuation 2 puff INHALATION Q8H #6.7 g 06/19/2007/25 Rx aerosol inhaler blood sugar diagnostic #100 ea 06/19/20 07/23/20 Rx lancets 33 gauge #100 ea 06/19/20 07/23/20 Rx famotidine 20 mg tablet 20 mg PO BID #180 tab 06/24/20 07/25/20 Rx omeprazole 20 mg capsule,delayed 20 mg PO DAILY #90 cap 06/24/20 07/25/20 Rx release prednisone 20 mg tablet 20 mg PO DAILY 06/24/20 07/25/20 History Exam Narrative Exam Narrative: PHYSICAL EXAM GENERAL APPEARANCE: Alert, healthy appearance, oriented, in no acute distress SKIN: No rashes. No breakdown HYDRATION: Well hydrated HEAD, EYES, EARS, NECK, THROAT: Head is normocephalic, pupils equal, round, reactive to light and accommodation, ocular movement intact, sclera clear and no jaundice. Dentition intact. No sore throat. No jaw pain. No thrush NECK: Supple, Trachea midline. No JVD. LUNGS: normal respiration/nl chest excursion. Clear to auscultation B/l no R/R/W HEART: Regular rate and rhythm, EXTREMITY: No edema or cyanosis no leg pain, redness, swelling. No IV infiltration ABDOMEN: non tender to palpation, no masses or distention, no hernias. Normal bowel sounds NEURO: no focal neuro deficits COVID-19 Screening Have you, or household traveled for leisure in last 14 days?: No Had IN PERSON contact w/suspected or confirmed C-19 person: No
[2020-07-25 09:20] VITALS: BP 136/78; PULSE 67; RESP 20; TEMP 36.7; O2SAT 96
[2020-07-25] MEDS: Lactated Ringers 1,000 ML 80 ML IV (10:00)
--- NOTE | 2020-07-25 12:14 | STOM_PTH ---
PATIENT: Bryan Henry LOC: [facility] U#:[id number] AGE/SX: 69/M ROOM: RE07/25/[address]: Vannessa Méndez : 1950 BED: DIS: 07/25/2020 SPEC #: [id number] RECD: 07/25/20 16:23 STATUS: YESENIA Doug #: [id number] CARINA: 07/25/20 12:[address]: Vannessa Méndez DEPT: Surgical Specimen RECD BY: Kylah Hilliard ENTERED: 07/25/20 16:29 SP TYPE: STOMACH OTHR DR: Maribeth Noonan MD, DC Tissues: 1 - BIOPSY BOWEL 2 - STOMACH BIOPSY 3 - STOMACH BIOPSY 4 - ESOPHAGUS BIOPSY 5 - STOMACH BIOPSY 6 - STOMACH BIOPSY 7 - ESOPHAGUS BIOPSY Procedures: GROSS AND MICRO LEVEL 4 Comments: [id number]
--- NOTE | 2020-07-25 12:38 | W.PM.DSUDISC ---
Discharge Plan Disposition Patient Disposition: HOME Condition: Good Discharge Details Reason For Visit: EGD Attending Provider: Vannessa Méndez Primary Care Provider: Maribeth Noonan Home Meds and New Rx's Prescriptions: New pantoprazole [Protonix] 40 mg tablet,delayed release (DR/EC) 40 mg PO BID Qty: 60 RF: 12 sucralfate [Carafate] 1 gram tablet 1 g PO QHS PRN (Reason: heartburn/indigeston) Qty: 90 RF: 12 Continued Centrum Silver Men 300-600-300 mcg tablet 1 tab PO DAILY RF: 0 glucosamine-chondroitin 900 mg tablet 900 mg PO DAILY RF: 0 metformin 500 mg tablet 500 mg PO BID Qty: 90 RF: 4 albuterol sulfate 90 mcg/actuation HFA aerosol inhaler 2 puff inhalation Q8H Qty: 6.7 RF: 4 (DME) lancets [OneTouch Delica Lancets] 33 gauge misc See Rx Instructions .ROUTE DAILY Qty: 100 RF: 5 (DME) Pharmacist Choice Strip See Rx Instructions .ROUTE .MEDSUPPLY Qty: 100 RF: 6 prednisone 20 mg tablet 20 mg PO DAILY RF: 0 dry eye relief 1 drp ophthalmic (eye) PRN PRNRF: 0 loratadine 10 mg Capsule 10 mg PO DAILY RF: 0 Discontinued famotidine 20 mg tablet 20 mg PO BID Qty: 180 RF: 5 omeprazole 20 mg capsule,delayed release(DR/EC) 20 mg PO DAILY Qty: 90 RF: 4 Discharge Instructions Additional Instructions: Findings: Severe Vazquez's esophagitis and hiatal hernia No:asa/NSAID's for 5 days try to limit Caffeine for the next 5 days No alcohol for 5 days Follow up: 08/07 at 10am Please call if you develop: fevers >101.5 Nausea or Vomiting Abdominal pain that is not transient DAY SURGERY UNIT POST COLONOSCOPY INSTRUCTIONS 1. Because there will be medication in your system for the next 24 hours, you may feel a little sleepy. Your coordination will be affected. Therefore: a. Do not drive or operate dangerous equipment for 24 hours. b. Do not drink alcohol beverages for 24 hours (not even beer). c. Plan to go home and rest for the day. 2. Generally there are no restrictions on your activity after a day or so has gone by, but you may feel a bit fatigued for a few days. 3 After you arrive home you may have a light meal and return to a normal diet as you can tolerate it without feeling sick to your stomach. 4. After surgery, you may feel pain or discomfort. This should be only transient, but if it persists please contact your doctor. 5. If there are any questions regarding the findings of your procedure, please feel free to contact your doctor. 6. If you are unable to contact your doctor with a problem, contact the hospital at [phone]. 7. Continue all your regular medications unless directed otherwise. I understand the above instructions and have no questions. Signature of Patient or Responsible Adult Escort Date/Time Name of Responsible Adult Escort Signature of Nurse Date/Time Stand Alone Forms: Colonoscopy Post Instructions, Frank Lyons (DSU) Activity:: No strenuous activity or lifting over 20 pounds x 48 hours Diet:: Soft diet x48 hours Discharge Orders Discharge Orders: Discharge Order (Routine); Ordered 07/25/20 Ordered By: Vannessa Méndez DS: Diagnosis Discharge Diagnosis (1) Pulmonary infiltrate: Status: Acute (2) Hypoxia: Status: Acute (3) Interstitial lung disease: Status: Acute (4) Lung mass: Status: Acute (5) SOB (shortness of breath): Status: Acute (6) Abnormal CT scan, esophagus: Status: Acute (7) Hiatal hernia: Status: Acute (8) Multifocal pneumonia: Status: Acute (9) Diabetes: Status: Chronic (10) Gastroesophageal reflux disease: Status: Acute (11) Vazquez's esophagus determined by biopsy: Status: Acute
--- NOTE | 2020-07-25 12:43 | ENDO_ITS ---
Date of service: 07/25/20 Time of Service: 12:43 Endoscopy Report DATE OF PROCEDURE: 07/25/20 PRE-OP DIAGNOSIS: gerd/aldana's/abnl ct POST-OP DIAGNOSIS: other (Lg hiatal hernia/severe Aldana's- path pd ) SURGEON: Vannessa Méndez ANESTHESIA TYPE: General:No Airway ESTIMATED BLOOD LOSS: 1 COMPLICATIONS: None DISPOSITION: same day PROCEDURE DESCRIPTION: After informed consent was obtained the patient was take to the procedure room and placed in a supine position. Monitors were applied and a time out was done. The patients name, date of , procedure type, allergies to medications and metal in their body was reviewed. A bite block was placed and the patient was sedated. Once sedated and comfortable the gastroscope was advanced through the oropharynx which was grossly normal into the esophagus. 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 It extends from the GE junction to the midesophgus or 4cm above the BE junction. This is examined under NBI- w/ changes noted. It Does not seem to be an overt cancer. Mult bx were taken from this region labeled GE junction/mid transition zone/ and transition zone. He also has a lg hiatal hernia- the mucosa was noted to be normal. Bx were taken from here as well. The scope was advanced into the stomach and through the pylorus into the 3rd portion of the duodenum. The duodenum was noted to be nl. Biopsies were done, all specimens are retrieved and no bleeding is noted.. The scope was retracted back into the stomach and biopsies were done to rule out H. pylori. There were gastritis or ulcers. ulcers. The scope was retroflexed. The cardia and fundus were noted to be normal. The hital hernia junction is at 42cm from the lips. The true GE junction is at approx. 36cm and the transition zone is at 28cm noted under NBI. The scope was removed and the patient was woken up and taken back to [facility] in stable condition. Follow up: 2 wks protonix BID carafate HS and prn for H/I s/s.
[2020-07-25] MEDS: Pantoprazole 40 MG VIAL IVP (12:51)
[2020-07-25] MEDS: Normal Saline Flush 10 ML SYR IV (12:52)
[2020-07-25 13:12] VITALS: BP 136/77; PULSE 76; RESP 22; TEMP 36.9; O2SAT 95
== END 2020-07-25 14:10 | disposition home or self-care (01) ==
PROVIDERS: PCP Family Medicine; Visit Provider Surgery
PROC: 0DJ68ZZ Inspection of Stomach, Via Natural or Artificial Opening Endoscopic (ICD-10-PCS; CPT 43235; principal; 2020-07-25 10:15)
DX: K21.9 Gastro-esophageal reflux disease without esophagitis (principal); K22.70 Barrett's esophagus without dysplasia; R93.3 Abnormal findings on diagnostic imaging of other parts of digestive tract; K44.9 Diaphragmatic hernia without obstruction or gangrene; K31.89 Other diseases of stomach and duodenum
CPT/HCPCS: 43239; 88305; 99221; J2001; J2704

== ENCOUNTER → 2020-08-07 09:49 | Outpatient (BNVA) | payer MEDICARE, BC, SELFPAY | PROVIDERS: PCP Family Medicine; Referring Provider Family Medicine; Visit Provider Surgery | DX: Z48.815 Encounter for surgical aftercare following surgery on the digestive system (principal); K22.70 Barrett's esophagus without dysplasia | CPT/HCPCS: 99213 ==

== ENCOUNTER 2021-02-23 14:58 | Outpatient (REF) | payer MEDICARE, BC, SELFPAY ==
[2021-02-25 15:06] LABS: COVID-19 RT-PCR UVMMC Result Negative (Negative)
== END 2021-02-23 14:59 | disposition home or self-care (01) ==
LOC: LBN 14:58
PROVIDERS: PCP Family Medicine; Visit Provider Family Medicine
DX: Z20.822 Contact with and (suspected) exposure to COVID-19 (principal); R05.8 Other specified cough
CPT/HCPCS: U0003

== ENCOUNTER 2021-04-24 13:22 | Outpatient (REF) | payer MEDICARE, BC, SELFPAY ==
[2021-04-25 13:57] LABS: COVID-19 RT-PCR UVMMC Result Negative (Negative)
== END 2021-04-24 13:23 | disposition home or self-care (01) ==
LOC: LBN 13:22
PROVIDERS: PCP Family Medicine; Visit Provider Family Medicine
DX: J06.9 Acute upper respiratory infection, unspecified (principal); Z20.822 Contact with and (suspected) exposure to COVID-19
CPT/HCPCS: U0003; U0005

== ENCOUNTER 2021-07-03 01:33 | Outpatient (CLI) | payer MEDICARE, BC, SELFPAY ==
[2021-07-03] MEDS: Albuterol HFA 18 GM 200 PUFF INH IH (09:25)
[2021-07-03] MEDS: Inhaler, Assist Device 1 EACH MC (09:26)
== END 2021-07-03 01:34 | disposition home or self-care (01) ==
PROVIDERS: PCP Family Medicine; Visit Provider Family Medicine
DX: J84.9 Interstitial pulmonary disease, unspecified (principal); R05.8 Other specified cough; Z87.891 Personal history of nicotine dependence
CPT/HCPCS: 94060; 94726; 94729

== ENCOUNTER → 2021-07-16 01:39 | Outpatient (CLI) | payer MEDICARE, BC, SELFPAY ==
--- NOTE | 2021-07-16 | DI.US_ITS ---
Exam(s) US RENAL EXAM: US RENAL CLINICAL HISTORY: EXAM DONE IN ERROR ON INCORRECT PATIENT NO CHARGE TECHNIQUE: Ultrasound performed using standard protocol. COMPARISON: No exams were available for comparison FINDINGS: Renal ultrasound was performed according to the usual protocol. Bladder is nearly empty. No hydrone phrosis or nephrolithiasis. No renal mass identified. IMPRESSION: Negative renal ultrasound. DATA REPOSITORY:
--- NOTE | 2021-07-16 06:45 | DI.CT_ITS ---
Exam(s) CT CHEST WO HIGH RES EXAM: CT CHEST WO HIGH RES CLINICAL HISTORY: interstitiAL lung disease,84.9 TECHNIQUE: CT examination of the chest was performed utilizing noncontrast scanning with additional high resolution is inspiratory and expiratory imaging period. COMPARISON: CT CT CHEST PE CTA from 05/28/2020 CR XR CHEST 2V PA LATERAL from 06/18/2020 FINDINGS: Images obtained through the upper abdomen show unremarkable appearance of visualized portions of the liver and spleen. Note is made of a moderate-sized hiatal hernia. The There is no mediastinal or hilar adenopathy. Mediastinal vascular structures appear intact by noncon trast criteria. Tracheobronchial tree appears intact. No pleural effusion or pleural-based mass. In comparison with prior chest CT of May 28, 2020, there has been marked interval improvement of the lungs with resolution of previously noted bilateral extensive infiltrates. On today's examinati on, there are mild changes of mosaic attenuation and mild dependent increased interstitial prominence . No focal consolidation. A small bleb or pneumatocele is present in the left lower lobe. There is a 5 millimeter in diameter left basilar peripheral intrapulmonary nodule which was probably obscured by consolidation on prior examination. Follow-up chest CT recommended in 12 months in a nonsmoker.. IMPRESSION: Marked interval improvement in extensive bilateral intrapulmonary infiltrates seen in May 2020. Mild mosaic attenuation, nonspecific. Slight peripheral interstitial prominence in the lung bases bi laterally. Follow-up chest CT recommended in 12 months for a left basilar intrapulmonary nodule if the patient i s a smoker. RADIATION DOSE DELIVERED: 621.89mGy.cm Total DLP !Error CTDIvol 621.89mGy.cm Total DLP !Error CTDIvol RADIATION OPTIMIZATION: All CT scans at this facility use at least one of these dose optimization te chniques: automated exposure control; mA and/or kV adjustment per patient size (includes targeted exa ms where dose is matched to clinical indication); or iterative reconstruction.
== END ==
PROVIDERS: PCP Family Medicine; Visit Provider Family Medicine
DX: J84.9 Interstitial pulmonary disease, unspecified (principal)
CPT/HCPCS: 71250; 76770

== ENCOUNTER → 2021-08-20 08:49 | Outpatient (BNVA) | payer MEDICARE, BC, SELFPAY | PROVIDERS: PCP Family Medicine; Referring Provider Family Medicine; Visit Provider Surgery | DX: K21.9 Gastro-esophageal reflux disease without esophagitis (principal); R93.3 Abnormal findings on diagnostic imaging of other parts of digestive tract; K22.70 Barrett's esophagus without dysplasia; K44.9 Diaphragmatic hernia without obstruction or gangrene; D50.0 Iron deficiency anemia secondary to blood loss (chronic) | CPT/HCPCS: 99212 ==

== ENCOUNTER 2021-08-20 09:33 | Outpatient (REF) | payer MEDICARE, BC, SELFPAY ==
[2021-08-20 09:55] LABS: Abs Immature Grans 0.01 10^3/uL (0.0-0.06); Absolute Basophil Count 0.06 10^3/uL (0.0-0.2); Absolute Eosinophil Count 0.29 10^3/uL (0.0-0.7); Absolute Lymphocyte Count 1.08 10^3/uL (1.2-3.4); Absolute Monocyte Count 0.45 10^3/uL (0.1-0.8); Absolute Neutrophil Count 3.14 10^3/uL (1.2-6.7); Basophils % 1.2; Eosinophils % 5.8; HCT 45.9 % (40.0-50.0); HGB 15.2 g/dL (13.5-17.5); Immature Grans % 0.2; Lymphocytes % 21.5; MCH 28.1 pg (27.0-33.0); MCHC 33.1 % (32.0-36.0); MCV 85 fL (80-95); MPV 10.1 fL (8.0-11.0); Monocytes % 8.9; Neutrophils % 62.4; Platelet Count 183 10^3/uL (130-400); RDW 12.9 % (11.8-14.1); RDW-SD 39.8 fL; WBC 5.03 10^3/uL (4.4-10.8)
== END 2021-08-20 09:34 | disposition home or self-care (01) ==
LOC: LBN 09:33
PROVIDERS: PCP Family Medicine; Visit Provider Surgery
DX: D50.0 Iron deficiency anemia secondary to blood loss (chronic) (principal); K21.9 Gastro-esophageal reflux disease without esophagitis; K22.70 Barrett's esophagus without dysplasia; K44.9 Diaphragmatic hernia without obstruction or gangrene; R93.3 Abnormal findings on diagnostic imaging of other parts of digestive tract; Z01.818 Encounter for other preprocedural examination
CPT/HCPCS: 85025

== ENCOUNTER 2021-10-20 19:31 | Outpatient (REF) | payer MEDICARE, BC, SELFPAY ==
[2021-10-20 17:37] LABS: Rheumatoid Factor <8.6 IU/mL (<12.0)
[2021-10-21 09:37] LABS: Cyclic Citrullinated Peptide <2.5 U/mL (<5.0)
[2021-10-21 15:26] LABS: ANA Interpretation Negative (Negative)
[2021-10-22 14:28] LABS: dsDNA Ab, IgG 12.8 IU/mL (<30.0)
== END 2021-10-20 19:32 | disposition home or self-care (01) ==
LOC: LBN 19:31
PROVIDERS: PCP Family Medicine; Visit Provider Student in an Organized Health Care Education/Training Program
DX: J84.9 Interstitial pulmonary disease, unspecified (principal)
CPT/HCPCS: 86200; 86038; 86225; 86431

== ENCOUNTER 2021-12-01 03:30 | Outpatient (CLI) | payer MEDICARE, BC, SELFPAY ==
[2021-12-01 08:37] LABS: HCT 47.1 % (40.0-50.0); HGB 15.7 g/dL (13.5-17.5); MCH 29.2 pg (27.0-33.0); MCHC 33.3 % (32.0-36.0); MCV 88 fL (80-95); MPV 9.7 fL (8.0-11.0); Platelet Count 192 10^3/uL (130-400); RBC 5.37 10^6/uL (4.36-5.78); RDW 12.2 % (11.8-14.1); RDW-SD 39.1 fL; WBC 5.29 10^3/uL (4.4-10.8)
[2021-12-01 09:09] LABS: ALT 29 U/L (16-63); AST 19 U/L (15-37); Albumin 3.7 g/dL (3.4-5.0); Alkaline Phosphatase 83 U/L (46-116); Anion Gap 9.3 mmol/L (3-11); BUN 21 mg/dL (7-18); Bilirubin, Total 0.4 mg/dL (0.2-1.0); CO2 28.7 mmol/L (21.0-32.0); Calcium 8.4 mg/dL (8.5-10.1); Calculated LDL 147 mg/dL (<100); Chloride 106 mmol/L (98-107); Cholesterol 226 mg/dL (<200); Estimated GFR 79.47 (mL/min/1.73m2); Glucose 116 mg/dL (74-106); HDL Cholesterol 66 mg/dL (40-60); Sodium 144 mmol/L (136-145); Total Protein 7.3 g/dL (6.4-8.2); Triglyceride 65 mg/dL (<150)
[2021-12-01 17:43] LABS: Albumin ug/mg Crea 4 (<30); Albumin, Ur 0.9 mg/dL (See Note); Creatinine, Ur 210.1 mg/dL (See Note)
== END 2021-12-01 03:31 | disposition home or self-care (01) ==
LOC: LBO 03:30
PROVIDERS: PCP Family Medicine; Visit Provider Family Medicine
DX: D50.0 Iron deficiency anemia secondary to blood loss (chronic) (principal); E11.9 Type 2 diabetes mellitus without complications; J84.9 Interstitial pulmonary disease, unspecified; I10 Essential (primary) hypertension
CPT/HCPCS: 36415; 80053; 80061; 85027; 82043; 82570; 83036

== ENCOUNTER 2022-11-09 02:50 | Outpatient (CLI) | payer MEDICARE, BC, SELFPAY ==
--- NOTE | 2022-11-09 07:45 | DI.DEXA_ITS ---
Exam(s) XR DEXA BONE DENSITY W/WO JOSÉ EXAM: XR DEXA BONE DENSITY W/WO JOSÉ CLINICAL HISTORY: chronic medication use,osteoporosis, m81.0,k22.70 TECHNIQUE: COMPARISON: No exams were available for comparison FINDINGS: Lateral Spine Image: Unremarkable. No compression deformities identified. Left forearm: Total T-Score: 0.3 Total Z-Score: 1.7 T- and Z-scores: Within normal limits. Lumbar Spine: Total T-Score: 3.9 Total Z-Score: 4.9 T- and Z-scores: Within normal limits. IMPRESSION: No evidence of osteoporosis.
== END 2022-11-09 03:10 ==
LOC: DI 02:50
PROVIDERS: PCP Family Medicine; Visit Provider Family Medicine
DX: Z13.820 Encounter for screening for osteoporosis (principal); M81.0 Age-related osteoporosis without current pathological fracture
CPT/HCPCS: 77080

== ENCOUNTER → 2022-11-12 00:59 | Outpatient (CLI) | payer MEDICARE, BC, SELFPAY ==
--- NOTE | 2022-11-12 08:32 | DI.CT_ITS ---
Exam(s) CT CHEST WO EXAM: CT CHEST WO CLINICAL HISTORY: F/U PULMONARY NODULE,R91.1 TECHNIQUE: Imaging Protocol: Axial computed tomography images with coronal and sagittal reformatted images were created and reviewed CONTRAST MATERIAL: Intravenous: Omnipaque 350 Contrast volume:structured data ml. COMPARISON: CT CT CHEST PE CTA from 05/28/[address] CHEST PE CTA from 06/19/[address] CHEST WO HIGH RES from 07/16/2021 FINDINGS: Pulmonary parenchyma: Stable 5 millimeter nodule lingula. No further follow-up recommended. No new nodules or other suspicious findings. No consolidation. No dominant measurable mass. Left lower lob e lab again noted . Tracheobronchial tree: No bronchiectasis or mucous plugging. Mediastinum and Isha: No dominant adenopathy or fluid collection. Pleura: No effusion or pneumothorax. Heart: The heart is not dilated. No coronary artery calcifications are seen. Aorta: Thoracic aorta non-dilated. No visible atherosclerotic changes. Upper abdomen: Unremarkable. Bones: Mild degenerative changes in the spine. Soft tissues: Unremarkable. IMPRESSION: Stable 5 millimeter nodule lingular. No further follow-up recommended for a low risk patient. For a high risk patient, an optional low-dose screening chest CT could be performed. RADIATION DOSE DELIVERED: 437.4mGy.cm Total DLP DATA REPOSITORY: All CT scans at this facility are submitted to the National Radiology Data Registry (NRDR) Dose Index Registry (DIR) with the [employer] ([employer]). RADIATION OPTIMIZATION: All CT scans at this facility use at least one of these dose optimization te chniques: automated exposure control; mA and/or kV adjustment per patient size (includes targeted exa ms where dose is matched to clinical indication); or iterative reconstruction.
== END ==
PROVIDERS: PCP Family Medicine; Visit Provider Student in an Organized Health Care Education/Training Program
DX: R91.1 Solitary pulmonary nodule (principal)
CPT/HCPCS: 71250

== ENCOUNTER → 2023-04-25 08:56 | Outpatient (BNVA) | payer MEDICARE, BC, SELFPAY | PROVIDERS: PCP Family Medicine; Referring Provider Family Medicine; Visit Provider Physician Assistant Surgical | DX: J84.9 Interstitial pulmonary disease, unspecified (principal); R91.1 Solitary pulmonary nodule | CPT/HCPCS: 99214 ==

== ENCOUNTER → 2023-10-10 07:55 | Outpatient (BNVA) | payer MEDICARE, BC, SELFPAY | PROVIDERS: PCP Family Medicine; Referring Provider Family Medicine; Visit Provider Physician Assistant Surgical | DX: J84.9 Interstitial pulmonary disease, unspecified (principal); R91.1 Solitary pulmonary nodule | CPT/HCPCS: 99214 ==

== ENCOUNTER → 2024-04-09 08:56 | Outpatient (BNVA) | payer MEDICARE, BC, SELFPAY | PROVIDERS: PCP Family Medicine; Referring Provider Family Medicine; Visit Provider Physician Assistant Surgical | DX: J84.9 Interstitial pulmonary disease, unspecified (principal); R91.1 Solitary pulmonary nodule | CPT/HCPCS: 99214 ==

== ENCOUNTER → 2024-10-09 07:39 | Outpatient (BNVA) | payer MEDICARE, BC, SELFPAY | PROVIDERS: PCP Family Medicine; Referring Provider Family Medicine; Visit Provider Physician Assistant Surgical | DX: J84.9 Interstitial pulmonary disease, unspecified (principal); R91.1 Solitary pulmonary nodule | CPT/HCPCS: 99214; 94010 ==